=== PATIENT | female | born 1945 | race Caucasian/White ===

== ENCOUNTER 2016-07-02 20:30 | Observation (INO) ==
[2016-07-02 21:07] LABS: Basophils # 0.1 K/mcL (0.0-0.2); Basophils % 0.5 %; Eosinophils % 0.3 %; Hematocrit 43.2 % (35.3-44.9); Hemoglobin 14.1 g/dL (11.5-15.4); Immature Granulocytes % 0.3 % (0-4); Lymphocytes % 40.5 %; Mean Corpuscular HGB Conc 32.6 g/dL (31.6-35.5); Mean Corpuscular Hemoglobin 29.5 pg (28.0-33.3); Mean Corpuscular Volume 90.4 fL (83.0-100.0); Mean Platelet Volume 9.9 fL (9.4-12.4); Monocytes # 0.6 K/mcL (0.0-1.3); Monocytes % 5.8 %; Neutrophils # 5.2 K/mcL (1.6-8.9); Platelet Count 221 K/mcL (140-400); Red Blood Count 4.78 M/mcL (3.82-4.97); Red Cell Distribution Width 12.5 % (11.5-14.5); Segmented Neutrophils % 52.6 %
--- NOTE | 2016-07-02 21:12 | Emergency Department Note ---
Disposition Clinical Impression: Chest pain Qualifiers: Chest pain type: unspecified Qualified Code(s): R07.9 - Chest pain, unspecified Disposition: Admitted As Inpatient Condition: Undetermined Time of Disposition: 22:03 Chest Pain HPI - General Chief Complaint: ED Chest Pain Stated Complaint: Chest pain radiating into L arm Time Seen by Provider: 07/02/16 20:45 Source: patient Mode of arrival: ambulatory Limitations: no limitations Vital Signs Reviewed: Yes Nursing Notes Reviewed: Yes - History of Present Illness HPI Narrative: 71-year-old female with history of hypertension, hyperlipidemia, CAD arrives to emergency emergency department complaining of left-sided chest pain with radiation into her back that began roughly 5 PM this evening. The patient does have associated difficulty breathing with this. The patient states every few minutes yesterday to deep breath due to her sensation. The patient denies any history of PE or DVT, recent surgeries, unilateral leg swelling. The patient denies any fevers, chills, cough. Patient denies any other complaints at this time. Pt complaint: chest pain Onset (ago): hour(s) (4) Time: 17:00 Duration: constant Pain Location: left chest Severity: moderate Severity scale (1-10): 9 Quality: tightness Pain Radiation: back Improves with: nothing Worsens with: nothing Associated symptoms: Reports: dyspnea Treatments prior to arrival chest pain: none - Related Data On Oral Contraceptives: No Allergies Allergy/AdvReac Type Severity Reaction Status Date / Time cephalexin [From Keflex] Allergy Rash Verified 07/02/16 20:32 metformin Allergy See Verified 07/02/16 20:32 Comments nitrofurantoin Allergy Chills Verified 07/02/16 20:32 [From Macrobid] sitagliptin [From Janumet] Allergy See Verified 07/02/16 20:32 Comments Sulfa (Sulfonamide Allergy Rash Verified 07/02/16 20:32 Antibiotics) sulfamethoxazole Allergy Rash Verified 07/02/16 20:32 [From Septra] trimethoprim [From Novra] Allergy Rash Verified 07/02/16 20:32 Review of Systems: Review of Systems Constitutional: Denies fevers, chills, night sweats HEENT: Denies headache, blurry vision, eye pain, tinnitus, vertigo, sore throat , neck or thyroid masses Respiratory: Denies cough, sputum change, hemoptysis, admits to dyspnea Cardiac: Admits to chest pain, pressure, denies palpitations, dyspnea on exertion, admits to pedal edema Gastrointestinal: Denies abdominal pain, changes in bowel habits, vomiting, nausea, hematemesis, hematochezia Genitourinary: Denies dysuria, hematuria, nocturia, change in frequency, urgency, incontinence Neurologic: Denies headaches, dizziness, syncope, focalized weakness, paraesthesias, weakness Musculoskeletal: Denies back pain, joint pain, myalgias All systems ED: reviewed and negative except as stated. 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 Abdomen: Normal inspection, Normal bowel sounds 4 quadrants, nontender to palpation : Patient deferred Extremities: Normal inspection, full range of motion, appropriate pulses, capillary refill under 2 seconds Neurological: Patient alert and oriented 3, cranial nerves II through XII grossly intact, GCS 15 Skin: Warm, intact, no rashes noted - General Limitations: no limitations General appearance: alert Course Vital Signs Temperature 97.8 F 07/02/16 20:32 Pulse Rate 102 07/02/16 20:32 Respiratory Rate 20 07/02/16 20:32 Blood Pressure 175/113 07/02/16 20:32 O2 Sat by Pulse Oximetry 96 07/02/16 20:32 Temperature 97.9 F 07/02/16 23:10 Pulse Rate 90 07/02/16 23:10 Respiratory Rate 16 07/02/16 23:10 Blood Pressure 160/83 07/02/16 23:10 O2 Sat by Pulse Oximetry 97 07/02/16 22:01 Oxygen Delivery Oxygen Delivery Room Air Chest Pain - MDM Narrative Medical decision making narrative: Patient has a heart score of 6. Given the patient's cardiac history and left- sided chest pain with associated dyspnea, we will admit the patient to the hospital for further workup. The patient states it has been at least 2 years since she has had any echocardiogram or workup in the hospital. Patient agrees to plan. Patient accepted by Dr. Junior. - Medical Records Medical records reviewed: Yes I reviewed the patient's medical records. - Lab Data Lab results reviewed: Yes I reviewed the patient's lab results. Result diagrams: 07/02/16 20:50 07/02/16 20:50 Lab Results 07/02/16 07/02/16 07/02/16 Range/Units 20:50 20:50 20:50 WBC 9.9 (4.3-11.1) K/mcL RBC 4.78 (3.82-4.97) M/mcL Hgb 14.1 (11.5-15.4) g/dL Hct 43.2 (35.3-44.9) % MCV 90.4 (83.0-100.0) fL MCH 29.5 (28.0-33.3) pg MCHC 32.6 (31.6-35.5) g/dL RDW 12.5 (11.5-14.5) % Plt Count 221 (140-400) K/mcL MPV 9.9 (9.4-12.4) fL Immature Gran % 0.3 (0-4) % Seg Neutrophils % 52.6 % Lymphocytes % 40.5 % Monocytes % 5.8 % Eosinophils % 0.3 % Basophils % 0.5 % Neutrophils # 5.2 (1.6-8.9) K/mcL Lymphocytes # 4.0 (0.6-4.6) K/mcL Monocytes # 0.6 (0.0-1.3) K/mcL Eosinophils # 0.0 (0.0-0.6) K/mcL Basophils # 0.1 (0.0-0.2) K/mcL Sodium 139 (136-145) mEq/L Potassium 3.8 (3.5-4.5) mEq/L Chloride 103 (98-109) mEq/L Carbon Dioxide 25 (19-29) mEq/L BUN 16 (7-20) mg/dL Creatinine 1.01 (0.57-1.11) mg/dL Est GFR ( Amer) > 60 (> 60) Est GFR (Non-Af Amer) 54 L (> 60) BUN/Creatinine Ratio 16 (6-26) Glucose 129 H (70-99) mg/dL Calculated Osmolality 291 (280-300) Calcium 10.5 (8.6-10.8) mg/dL Total Bilirubin 0.5 (0.2-1.2) mg/dL AST 17 (5-34) Units/L ALT 16 (0-55) Units/L Alkaline Phosphatase 121 (38-126) Units/L Troponin I 0.00 (0-0.03) ng/mL Serum Total Protein 7.8 (6.0-8.3) g/dL Albumin 4.0 (3.5-5.0) g/dL Globulin 3.8 H (2.4-3.5) g/dL Albumin/Globulin Ratio 1.1 (1.1-2.2) - Radiology Data Radiology results reviewed: Yes I reviewed the patient's radiology results. - EKG Data EKG attestation: Yes I reviewed and interpreted this EKG. EKG results narrative: Heart rate 98 bpm. MN interval 180 ms. QTC 395 ms. Normal sinus rhythm. No ST elevation. EKG with mild nonspecific ST changes from EKG from 04/03/2015. Heart Score - Score History: Moderately Suspicious EKG: Non Specific repolarisation Disturbance Age: Greater than 65 Risk Factors: Equal/Greater than 3 risk factor or history of atherosclerotic disease Troponin: Less than normal limit HEART Score Total: 6 Attestation Statement - Attestation Attestation: Dr. Fraser note: Pt was seen in conjunction with resident Dr. Kinney, please see his charting for complete documentation. Assessment [id number] time with the patient and agree with the patient's treatment and disposition; left-sided chest pain for less than 4 hours. History of prior heart disease. EKG and cardiac enzymes are unremarkable at this time. She will be admitted for observation and testing ; pain free at time of admission
[2016-07-02 21:20] LABS: Alanine Aminotransferase 16 Units/L (0-55); Albumin/Globulin Ratio 1.1 (1.1-2.2); Alkaline Phosphatase 121 Units/L (38-126); Aspartate Amino Transferase 17 Units/L (5-34); BUN/Creatinine Ratio 16 (6-26); Bilirubin,Total 0.5 mg/dL (0.2-1.2); Blood Urea Nitrogen 16 mg/dL (7-20); Calcium 10.5 mg/dL (8.6-10.8); Carbon Dioxide 25 mEq/L (19-29); Chloride 103 mEq/L (98-109); Globulin 3.8 g/dL (2.4-3.5); Glucose 129 mg/dL (70-99); Osmolality,Calculated 291 (280-300); Potassium 3.8 mEq/L (3.5-4.5); Sodium 139 mEq/L (136-145); Total Protein 7.8 g/dL (6.0-8.3); eGFR For African Americans > 60 (> 60); eGFR For Non-African Americans 54 (> 60)
[2016-07-02] MEDS ORDERED: Aspirin 325 MG TABLET PO ONE (22:42)
[2016-07-03] MEDS ORDERED: D5% in Water 1,000 ML IVC PRN (03:11)
[2016-07-03] MEDS ORDERED: Acetaminophen 325 MG TABLET PO PRN (03:11)
[2016-07-03] MEDS ORDERED: *HR* Dextrose 50 % in Water (Syg) 50 ML SYRINGE IVP PRN (03:11)
[2016-07-03] MEDS ORDERED: Ondansetron ODT 4 MG TAB.RAPDIS SL PRN (03:11)
[2016-07-03] MEDS ORDERED: Dextrose Gel 15 GM PO PRN ×2 (03:11)
[2016-07-03] MEDS: ALPRAZolam 0.5 MG TABLET PO SCH ×2 (03:16→21:03)
[2016-07-03 03:38] LABS: Hematocrit 38.9 % (35.3-44.9); Hemoglobin 12.8 g/dL (11.5-15.4); Mean Corpuscular HGB Conc 32.9 g/dL (31.6-35.5); Mean Corpuscular Hemoglobin 29.5 pg (28.0-33.3); Mean Corpuscular Volume 89.6 fL (83.0-100.0); Platelet Count 206 K/mcL (140-400); Red Blood Count 4.34 M/mcL (3.82-4.97); Red Cell Distribution Width 12.5 % (11.5-14.5)
[2016-07-03 03:48] LABS: Hemoglobin A1C 7.2 %
[2016-07-03 03:49] LABS: BUN/Creatinine Ratio 17 (6-26); Blood Urea Nitrogen 15 mg/dL (7-20); Calcium 9.5 mg/dL (8.6-10.8); Carbon Dioxide 24 mEq/L (19-29); Chloride 104 mEq/L (98-109); Cholesterol 153 mg/dL (< 200); Glucose 139 mg/dL (70-99); HDL Cholesterol 51 mg/dL (40-59); LDL Cholesterol,Calculated 76 mg/dL (0-99); Magnesium 1.9 mg/dL (1.6-2.6); Osmolality,Calculated 291 (280-300); Phosphorous 3.6 mg/dL (2.3-4.7); Potassium 3.7 mEq/L (3.5-4.5); Sodium 139 mEq/L (136-145); Triglycerides 130 mg/dL (< 150); eGFR For African Americans > 60 (> 60); eGFR For Non-African Americans > 60 (> 60)
--- NOTE | 2016-07-03 04:07 | Internal Med History&Physical ---
<nIezLore Ann - Last Filed: 07/03/16 05:26> Date of Encounter: 07/03/16 Time of Encounter: 03:43 Assessment and Plan (1) Atypical chest pain Current visit: Yes Status: Acute possible etiology cardiac vs musculoskeletal vs gerd vs anxiety attack currently resolved EKG NSR trop 0.00>0,00 will trend trop continue statin, asa control BP, anxiety monitor for return of symptoms HEART score 6 in ER CATHLEEN score 3 supportive care (2) Back pain Current visit: Yes Status: Acute pt takes antiinflammatories at home continue home therapy Qualifiers: Back pain location: thoracic back pain Back pain laterality: bilateral (3) Musculoskeletal back pain Current visit: Yes Status: Acute (4) Musculoskeletal arm pain Current visit: Yes Status: Acute Qualifiers: Laterality: left Qualified Code(s): M79.602 - Pain in left arm (5) CKD (chronic kidney disease) Current visit: Yes Status: Acute (6) Diabetes Current visit: Yes Status: Acute glucose monitoring sliding scale diabetic diet Qualifiers: Diabetes mellitus type: other specified (including SURINDER) Diabetes mellitus complication status: without complication 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 Qualified Code(s): E13.9 - Other specified diabetes mellitus without complications (7) Anxiety Current visit: Yes Status: Acute continue home meds (8) HTN (hypertension) Current visit: Yes Status: Acute 119/72 controlled continue to monitor Qualifiers: Hypertension type: essential hypertension Qualified Code(s): I10 - Essential (primary) hypertension (9) HLD (hyperlipidemia) Current visit: Yes Status: Acute on statin Qualifiers: Hyperlipidemia type: unspecified Qualified Code(s): E78.5 - Hyperlipidemia , unspecified Internal Medicine - H&P: HPI Chief complaint: back pain Admitted From: Home Plans for Post Hospital Care: Home History of present illness: Ms. Pyle is a 71 year old female with left sided back pain. PMHx CAD,DM, HTN, HLD with c/o Left sided paraspinal back pain that wraps under her scapula and side and radiates around to left side of her chest. She states that it occurred soon after she finished raking and doing yard work around 5pm on 07/02. She describes it as sharp stabbing and a deep "pressure-like" pain. Pt states that pain is relieved when she does not move left shoulder or arm and is made worse with movement. She states no change with taking aspirin, and did not try nitroglycerin for relief. SHe states she has had pain like this before but was on the right side. Pt states she does have some dyspnea caused by physical exertion that has been unchanged in nature for the past 40 years. Pt denies headache, diaphoresis, change in vision, current CP, SOB, cough, numbness/ tingling. Past Med Surg Social Fam HX - Past Medical History Medical history: coronary artery disease, diabetes, GERD, hyperlipidemia, hypertension, renal disease Psychiatric history: anxiety - Past Surgical History Surgical History: cholecystectomy - Social History Smoking Status: Never smoker Smokeless Tobacco Status: No Alcohol use: none Drug use: none Occupational status: retired Current living situation: Home Activity Level: Independent ambulation - Family History Father Hx Family Endocrine Disorder: Yes (DM) Internal Medicine - H&P: Meds Alprazolam [Xanax 0.25 MG Tablet] 0.25 mg PO [facility] 07/02/16 [History] Alprazolam [Xanax 0.5 MG Tablet] 0.5 mg PO 07/02/16 [History] Aspirin Enteric Coated [Aspirin EC] 81 mg PO 07/02/16 [History] Atorvastatin Calcium [Lipitor] 20 mg PO 07/02/16 [History] Cyanocobalamin (Vitamin B-12) [Vitamin B-12] 500 mcg PO DAILY 07/02/16 [History] DiphenhydraMINE [Benadryl] 25 mg PO 07/02/16 [History] GlipiZIDE [Glucotrol] 5 mg PO BID 07/02/16 [History] SitaGLIPtin [Januvia] 100 mg PO [facility] 07/02/16 [History] Allergies cephalexin [From Keflex] Allergy (Verified 07/02/16 20:32) Rash metformin Allergy (Verified 07/02/16 20:32) See Comments nitrofurantoin [From Macrobid] Allergy (Verified 07/02/16 20:32) Chills sitagliptin [From Janumet] Allergy (Verified 07/02/16 20:32) See Comments Sulfa (Sulfonamide Antibiotics) Allergy (Verified 07/02/16 20:32) Rash sulfamethoxazole [From Septra] Allergy (Verified 07/02/16 20:32) Rash trimethoprim [From Septra] Allergy (Verified 07/02/16 20:32) Rash All Systems PM: A 10-system review of systems was performed and is negative for pertinent findings except as documented above in the HPI. - Constitutional Constitutional: no chills, no fever(s), no night sweats - EENT Eyes: no change in vision, no discharge, no pain, no photophobia - Cardiovascular Cardiovascular ROS IM: no chest pain, no diaphoresis, no dyspnea, no lightheadedness, no palpitations, no syncope - Respiratory Respiratory: no cough, no dyspnea, no wheezing, no excessive phlegm production - Gastrointestinal Gastrointestinal: no abdominal pain, no diarrhea, no hematemesis, no hematochezia, no melena, no nausea, no vomiting - Genitourinary Genitourinary: no change in urinary stream, no dysuria, no flank pain, no hematuria - Musculoskeletal Musculoskeletal ROS IM: back pain, no numbness, no stiffness - Integumentary Integumentary IM: no rash, no unusual bruising - Neurological Neurological ROS: no confusion, no convulsions, no focal weakness, no numbness, no tingling, no tremor(s) - Constitutional Vitals: Temp Pulse Resp BP Pulse Ox 97.9 F 90 16 160/83 97 07/02/16 23:10 07/02/16 23:10 07/02/16 23:10 07/02/16 23:10 07/02/16 22:01 General appearance: Present: A&O X 3, morbidly obese, no acute distress, answers questions appropriately - Head Head exam: Present: atraumatic, normocephalic - Eye Eye exam: Present: EOMI, PERRL, conjuntiva pink, sclera anicteric Pupils: Present: PERRL - ENT ENT exam: Present: mucous membranes dry - Neck Neck exam general surgery: Present: supple, trachea midline. Absent: lymphadenopathy - Respiratory Respiratory exam: Present: CTAB. Absent: accessory muscle use, rales, rhonchi, wheezes - Cardiovascular Cardiovascular exam: Present: RRR, +S1, +S2. Absent: diastolic murmur, gallop, rubs, systolic murmur - GI/Abdominal GI/Abdominal exam: Present: normal bowel sounds, soft, no peritoneal signs. Absent: distended, tenderness Additional comments: RUQ healed scar s/p open cholestectomy - Extremities Exam Extremities exam: Present: pedal edema (trace b/l), warm, radial pulses palpable and symetrical. Absent: calf tenderness, cyanotic - Back Exam Back exam: Present: paraspinal tenderness (B/L C7-T7 distribution L>R). Absent : CVA tenderness (L), CVA tenderness (R), vertebral tenderness - Neurological Exam Neurological exam: Present: CN II-XII intact, oriented X3, no focal deficits, strengths equal and symetr throughout. Absent: pronater drift, facial droop, speech deficit - Psychiatric Psychiatric exam: Present: anxious - Skin Skin exam: Present: dry, intact Internal Med - H&P Results - Labs CBC & Chem 7: 07/03/16 03:10 07/03/16 03:10 Labs: Short CBC 07/03/16 Range/Units 03:10 WBC 9.6 (4.3-11.1) K/mcL Hgb 12.8 (11.5-15.4) g/dL Hct 38.9 (35.3-44.9) % Plt Count 206 (140-400) K/mcL <Olman Wilburn R - Last Filed: 07/03/16 11:02> Date of Encounter: 07/03/16 Internal Medicine - H&P: HPI History of present illness: Ms. Pyle is a 71 year old female All Systems PM: A 10-system review of systems was performed and is negative for pertinent findings except as documented above in the HPI. - Constitutional Vitals: Temp Pulse Resp BP Pulse Ox 97.7 F 73 16 158/87 94 07/03/16 06:56 07/03/16 06:56 07/03/16 06:56 07/03/16 06:56 07/03/16 06:56 Internal Med - H&P Results - Labs CBC & Chem 7: 07/03/16 03:10 07/03/16 03:10 Labs: Short CBC 07/03/16 Range/Units 03:10 WBC 9.6 (4.3-11.1) K/mcL Hgb 12.8 (11.5-15.4) g/dL Hct 38.9 (35.3-44.9) % Plt Count 206 (140-400) K/mcL BMP 07/03/16 03:10 Sodium 139 Potassium 3.7 Chloride 104 Carbon Dioxide 24 BUN 15 Creatinine 0.88 Glucose 139 H Calcium 9.5 Cardiac Enzymes 07/03/16 07/03/16 Range/Units 03:10 08:41 Troponin I 0.00 0.00 (0-0.03) ng/mL - Attending Attestation I performed a history and physical examination of the patient and discussed management with the resident. I reviewed the residents note and agree with the documented findings and plan of care, with additions as below. 71 year old female with PMHx of CAD,DM, HTN, HLD with c/o Left sided chest pain with some numbness of the left upper extremity, started yesterday. O/E: Cardia: regular rate; rhythm. Lungs: CTA. EKG: SR; Q wave in III, AVF. T wave inversion in III, AVF. St depression in II, V3-V6. CXR reported no acute process. A/P: chest pain: telemetry; trend troponins; Stress test.
[2016-07-03] MEDS ORDERED: Insulin LISPRO 300 UNITS/3 ML VIAL SQ SCH ×2 (06:00→21:00)
[2016-07-03] MEDS: *HR* Heparin 5,000 UNIT/ML VIAL SQ SCH ×2 (06:08→17:25)
[2016-07-03] MEDS: Pantoprazole 40 MG VIAL IVP SCH (06:09)
[2016-07-03] MEDS: Insulin LISPRO 300 UNITS/3 ML VIAL SQ SCH ×3 (08:32→17:24)
[2016-07-03] MEDS ORDERED: Regadenoson 0.4 MG/5 ML SYRINGE IVP ONE (08:52)
--- NOTE | 2016-07-03 13:33 | Electrocardiograph Report ---
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
--- NOTE | 2016-07-03 19:58 | Internal Med Progress Note ---
Date of Encounter: 07/03/16 Time of Encounter: 14:30 - Assessment and plan (1) Atypical chest pain Current Visit: Yes Status: Acute Assessment and plan: The pain started immediately after the patient had raked leaves in her yard. She is upset when the possibility of musculoskeletal etiology as brought forth. She states that she rakes leaves like this all with time and that this could not possibly be her muscles. She also endorses pain to her left arm. Pain is reproduced with palpation highly consistent with musculoskeletal etiology however given her risk factors, will await the second part of her 2 heart stress test. Chest x-ray negative. Regarding her hypertension, patient stating that she has been tried on "all of the meds" and states that her blood pressure simply goes too low on every single medication. Will not start any antihypertensive medication during this visit and have her follow up outpatient. (2) Musculoskeletal arm pain Current Visit: Yes Status: Suspected Qualifiers: Laterality: left Qualified Code(s): M79.602 - Pain in left arm (3) Diabetes Current Visit: Yes Status: Chronic Assessment and plan: Controlled with an A1c of 7.2%. She is on Januvia and glipizide. Sliding scale while admitted. (4) HTN (hypertension) Current Visit: Yes Status: Chronic Assessment and plan: Borderline hypertensive at times however the patient does not appear to be on any antihypertensive medications at home, see prior note for atypical chest pain Qualifiers: Hypertension type: essential hypertension Qualified Code(s): I10 - Essential (primary) hypertension (5) HLD (hyperlipidemia) Current Visit: Yes Status: Chronic Assessment and plan: Lipid panel unremarkable, recommend continue statin and low cholesterol diet Qualifiers: Hyperlipidemia type: unspecified Qualified Code(s): E78.5 - Hyperlipidemia , unspecified (6) YENIFER (acute kidney injury) Current Visit: Yes Status: Resolved Assessment and plan: No evidence to support chronic kidney disease, mild acute kidney injury noted upon arrival as resolved. (7) Morbid obesity with BMI of 40.0-44.9, adult Current Visit: Yes Status: Chronic - Subjective Interval history: Patient seen and examined. On examination, patient is sitting upright in bed. Patient stating she continues to have intermittent bouts of chest pain. She states that her pain is not due to her raking stating this is very minimal and she does at all time. She is concerned that her blood pressure was a little bit too low. - Constitutional Vitals: Temp Pulse Resp BP Pulse Ox 98.0 F 84 16 141/75 97 07/03/16 18:45 07/03/16 18:45 07/03/16 18:45 07/03/16 18:45 07/03/16 18:45 General appearance: Present: A&O X 3, morbidly obese, pleasant, no acute distress, answers questions appropriately - Head Head exam: Present: atraumatic, normocephalic - Eye Eye exam: Present: PERRL, conjuntiva pink, sclera anicteric Pupils: Present: PERRL - Neck Neck exam general surgery: Present: supple, trachea midline. Absent: lymphadenopathy - Respiratory Respiratory exam: Present: chest wall tenderness, CTAB. Absent: accessory muscle use, rales, respiratory distress, rhonchi, wheezes - Cardiovascular Cardiovascular exam: Present: RRR, +S1, +S2. Absent: diastolic murmur, gallop, rubs, systolic murmur - GI/Abdominal GI/Abdominal exam: Present: normal bowel sounds, soft, no peritoneal signs. Absent: distended, tenderness - Extremities Exam Extremities exam: Present: warm, radial pulses palpable and symetrical. Absent : calf tenderness, cyanotic, pedal edema - Neurological Exam Neurological exam: Present: alert, CN II-XII intact, oriented X3, no focal deficits, strengths equal and symetr throughout. Absent: pronater drift, facial droop, speech deficit - Skin Skin exam: Present: dry, intact, normal color, warm Internal Medicine: Result - Labs CBC & Chem 7: 07/03/16 03:10 07/03/16 03:10 Labs: Short CBC 07/03/16 Range/Units 03:10 WBC 9.6 (4.3-11.1) K/mcL Hgb 12.8 (11.5-15.4) g/dL Hct 38.9 (35.3-44.9) % Plt Count 206 (140-400) K/mcL BMP 07/03/16 03:10 Sodium 139 Potassium 3.7 Chloride 104 Carbon Dioxide 24 BUN 15 Creatinine 0.88 Glucose 139 H Calcium 9.5 Cardiac Enzymes 07/03/16 07/03/16 Range/Units 03:10 08:41 Troponin I 0.00 0.00 (0-0.03) ng/mL Consult Discharge Plan - Plan Referrals: Mike Carranza MD [Primary Care Provider] -
[2016-07-03] MEDS ORDERED: Aspirin Enteric Coated 81 MG Tablet PO SCH (21:00)
[2016-07-04] MEDS: Pantoprazole 40 MG VIAL IVP SCH (06:05)
[2016-07-04] MEDS: *HR* Heparin 5,000 UNIT/ML VIAL SQ SCH (06:06)
[2016-07-04] MEDS: Insulin LISPRO 300 UNITS/3 ML VIAL SQ SCH ×2 (08:31→12:47)
--- NOTE | 2016-07-04 09:08 | Nuclear Medicine Stress Report ---
Regadenoson Nuclear 2 day Name: Tessa Pyle Date of Study: 07/03/2016 Date: 1945 Ht: 66.0 in Medical Record#: [id number] Age: 71 Wt: 276.0 lb Gender: Female Order #: [id number] Location: [facility] Room: [facility] Supervising Provider: Edmond Vallejo CNP Reading Physician: Barbara Bustillo DO Ordering Physician: Rubina Avendano CNP Primary Care Physician: Mike Carranza MD Stress Technologist: Angely Edward, LEATHER CARVER,CPFT Eviscerator: Edwin Garza Indications: Atypical chest pain Impression: Technically challenging 2-day study. There is decreased radiotracer uptake of mild intensity during stress involving the anterior wall and apex. This may be secondary to breast attenuation artifact. However moderate reversible ischemia in this area cannot be ruled out. No appreciable change in pharmacologic stress ECG from baseline. Normal gated EF. Recommend clinical correlation. History: Diabetes Hypercholesteremia Stress Test Summary: Stress Test Type: Pharmacologic Regadenoson 0.4mg/5ml given IV Baseline Information: Initial Heart Rate: 74 Blood Pressure: 138/82 Stress Information: Stress Time: 4 min 05 sec Test Terminated Due to (primary): As per protocol METS Reached: 1 Nuclear Summary: SPECT myocardial perfusion imaging using Tc99m Sestamibi given intravenously was performed at rest and following cardiac stress testing. The resting images were obtained following initial dose of 32.0 mCi. Following stress an additional dose of 32.8 mCi was given at peak exercise or 30 seconds post regadenoson infusion. Medication Given: Time Medication Dose Units Route Findings: Stress Note * Resting ECG demonstrated normal sinus rhythm with nonspecific ST abnormalities. * No appreciable change in pharmacologic ECG when compared to rest. * Patient had no chest pain during stress. * No arrhythmias were noted during stress. Hemodynamic responses * Normal hemodynamic responses to pharmacologic stress. Study Quality * Study quality was fair. This was a 2-day study. Gated EF > 70% * Gated EF > 70%. Left Ventricle * The left ventricle is not dilated. TID * No evidence of transient ischemic dilatation. Lung Uptake * There is no evidence of increase lung uptake. NORMALS * Normal wall motion. PERFUSION * Normal resting perfusion. * There is decreased radiotracer uptake of mild intensity in the entire anterior wall and apex during stress. Cine images demonstrate possibility of breast shadow. SDS 6 * Other views on stress images demonstrate normal perfusion. Updated by Barbara Bustillo on 07/04/2016 8:53:14 AM electronically signed on 07/04/2016 9:02:31 AM with status of Final
--- NOTE | 2016-07-04 10:54 | Cardiology Consult Note ---
Date of Encounter: 07/04/16 Time of Encounter: 10:47 Assessment and Plan (1) Abnormal stress test Current Visit: Yes Status: Acute 2 day stress test technically challenging study. There was decreased uptake of mild intensity during stress involving anterior wall and apex. May be secondary to breast attenuation artifact, but moderate reversible ischemia cannot be ruled out. Normal gated EF. Echo 03/2014 EF 65%, mild diastolic dysfunction, no significant valvular dysfunction. Pt's chest pain is atypical--occurred at rest, worsened when moving her left arm /shoulder, no worsening with exertion. Since resolved. She does have risk factors for CAD including HTN, HLD, DM, obesity. Given her atypical symptoms, recommend medical management for now. She is on ASA and Statin. Discussed adding BB, but pt is hesitant reporting her BP cannot tolerate any antihypertensives and drops her BP too much. Recommend outpt follow-up in 2-3 weeks for re-evaluation of symptoms. Anticipate sign off once seen and evaluated by Dr. Osorio. (2) Chest pain Current Visit: Yes Status: Acute Details as above. Troponins negative, no acute EKG changes. Atypical in nature. BP 175/113 on presentation, which could have contributed as well. Stress test abnormality breast attenuation artifact vs. moderate ischemia. Given atypical symptoms, recommend medical management and close outpt follow-up with cardiology. Qualifiers: Chest pain type: unspecified Qualified Code(s): R07.9 - Chest pain, unspecified (3) HTN (hypertension) Current Visit: Yes Status: Chronic BP was 175/113 on admission. Since better controlled. Pt hesitant to start antihypertensives, stating she has tried them all and even low doses drop her BP too much. Qualifiers: Hypertension type: essential hypertension Qualified Code(s): I10 - Essential (primary) hypertension Discussion w patient/family: The assessment and plan as outlined above was discussed with the patient and/or family members who expressed understanding and agreement. All questions were answered. Thank you for involving us in the care of your patient. Please call with any questions. I will discuss all the above with Dr. Osorio and make changes as necessary. History of Present Illness Consult date: 07/04/16 Requesting physician: Rubina Avendano Consult reason: abnormal stress Chief complaint: chest pain History of present illness: Ms. Pyle is a 71 year old female with PMH of DM, HTN, HLD that presented to ED with chief complaint of left sided chest pain. She states that it occurred soon after she finished raking and doing yard work around 5pm on 07/02. She describes it as sharp stabbing and a deep "pressure-like" pain. Pt states that pain is relieved when she does not move left shoulder or arm and was made worse with movement of her left arm. There was no change with taking aspirin. She reports the pain did not worsen with exertion. She sometimes experiences "lung pain" when lying in her recliner or in bed located on her back and that pain only occurs at rest, not with exertion. Chronic exertional dyspnea unchanged from her baseline. No known hx of CAD. 2 day stress test was obtained. It was a technically challenging study. There was decreased uptake of mild intensity during stress involving anterior wall and apex. May be secondary to breast attenuation artifact, but moderate reversible ischemia cannot be ruled out. Echo 03/2014 EF 65%, mild diastolic dysfunction, no significant valvular dysfunction. Pt denies any recurrent chest pain since yesterday morning when she experienced a brief tingling sensation. Past Med Surg Social Fam HX - Past Medical History Medical history: diabetes, GERD, hyperlipidemia, hypertension, renal disease Psychiatric history: anxiety - Past Surgical History Surgical History: cholecystectomy - Social History Smoking Status: Never smoker Smokeless Tobacco Status: No Alcohol use: none Drug use: none - Family History Father Hx Family Endocrine Disorder: Yes (DM) Medications and Allergies Alprazolam [Xanax 0.25 MG Tablet] 0.25 mg PO QAM 07/02/16 [History] Alprazolam [Xanax 0.5 MG Tablet] 0.5 mg PO HS 07/02/16 [History] Aspirin Enteric Coated [Aspirin EC] 81 mg PO HS 07/02/16 [History] Atorvastatin Calcium [Lipitor] 20 mg PO HS 07/02/16 [History] Cyanocobalamin (Vitamin B-12) [Vitamin B-12] 500 mcg PO DAILY 07/02/16 [History] DiphenhydraMINE [Benadryl] 25 mg PO HS 07/02/16 [History] GlipiZIDE [Glucotrol] 5 mg PO BID 07/02/16 [History] SitaGLIPtin [Januvia] 100 mg PO QAM 07/02/16 [History] Allergies cephalexin [From Keflex] Allergy (Verified 07/02/16 20:32) Rash metformin Allergy (Verified 07/02/16 20:32) See Comments nitrofurantoin [From Macrobid] Allergy (Verified 07/02/16 20:32) Chills sitagliptin [From Janumet] Allergy (Verified 07/02/16 20:32) See Comments Sulfa (Sulfonamide Antibiotics) Allergy (Verified 07/02/16 20:32) Rash sulfamethoxazole [From Septra] Allergy (Verified 07/02/16 20:32) Rash trimethoprim [From Septra] Allergy (Verified 07/02/16 20:32) Rash All Systems Review: A 10-system review of systems was performed and is negative for pertinent findings except as documented above in the HPI. - Cardiovascular Cardiovascular: as per HPI, chest pain at rest, dyspnea on exertion, radiating jaw, neck or arm pain - Respiratory Respiratory: dyspnea Physical Examination Vital Signs, Last 4 Hours Temp Pulse Resp BP Pulse Ox 07/04/16 10:46 97.4 F L 07/04/16 10:45 76 16 144/81 95 07/04/16 08:04 97.7 F 79 16 142/81 95 General: Conversant, No Apparent Distress HEENT: Atraumatic, Normocephaly, Mucus Membranes Moist Neck: No JVD, Normal carotid pulses Cardiac: Reg Rate and Rhythm, Normal S1 and S2, No Murmur Lungs: Normal Breath Sounds, No Wheeze, Rales, Rhonchi Neuro: Alert and responsive, No focal deficits noted Abdomen: Soft, Non-Tender Skin: No rashes noted on visualized skin Musculoskeletal: No Chest Wall Tenderness Extremities: No Clubbing, No Cyanosis, No Edema, Normal Pulses Results 07/03/16 03:10 07/03/16 03:10 Active Medications Acetaminophen (Tylenol) 650 mg PO Q6HR PRN PRN Reason: Mild Pain (1-3) Stop: 01/02/17 03:12 Alprazolam (Xanax) 0.5 mg PO HS [facility] PRN Reason: Protocol Stop: 01/02/17 03:01 Last Admin: 07/03/16 21:03 Dose: 0.5 mg Aspirin (Aspirin Ec) 81 mg PO HS [facility] Stop: 01/02/17 21:01 Last Admin: 07/03/16 21:03 Dose: 81 mg Atorvastatin Calcium (Lipitor) 20 mg PO HS [facility] Stop: 01/02/17 03:01 Last Admin: 07/03/16 21:04 Dose: 20 mg Atorvastatin Calcium (Lipitor) 20 mg PO HS [facility] Stop: 01/02/17 21:01 Last Admin: 07/03/16 21:04 Dose: Not Given Dextrose/Water (Dextrose 50% (Syg)) 25 ml IVP AD PRN PRN Reason: Hypoglycemia Stop: 01/02/17 03:12 Diphenhydramine HCl (Benadryl) 25 mg PO HS [facility] Stop: 01/02/17 03:01 Last Admin: 07/03/16 21:04 Dose: 25 mg Docusate Sodium (Colace) 100 mg PO BID PRN PRN Reason: Constipation Stop: 01/02/17 03:12 Glucagon (Glucagen) 1 mg IM ONCE PRN PRN Reason: Hypoglycemia Stop: 01/02/17 03:12 Glucose (Gluctose) 15 gm PO ONCE PRN PRN Reason: Hypoglycemia Stop: 01/02/17 03:12 Glucose (Gluctose) 30 gm PO ONCE PRN PRN Reason: Hypoglycemia Stop: 01/02/17 03:12 Heparin Sodium (Porcine) (Heparin) 5,000 unit SQ Q12HCO [facility] Stop: 01/02/17 06:01 Last Admin: 07/04/16 06:06 Dose: 5,000 unit Dextrose (Dextrose 5%) 1,000 mls @ 100 mls/hr IVC .Q10H PRN PRN Reason: HYPOGLYCEMIA Stop: 01/02/17 03:12 Insulin Human Lispro (Humalog) 0 units SQ TIDAC [facility] PRN Reason: Protocol Stop: 01/02/17 07:31 Last Admin: 07/04/16 08:31 Dose: 4 units Insulin Human Lispro (Humalog) 0 units SQ HS [facility] PRN Reason: Protocol Stop: 01/02/17 21:01 Last Admin: 07/03/16 21:09 Dose: Not Given Ondansetron HCl (Zofran Odt) 4 mg SL Q8HR PRN PRN Reason: Nausea And Vomiting Stop: 01/02/17 03:12 Pantoprazole Sodium (Protonix) 40 mg IVP 0630 [facility] Stop: 01/02/17 06:31 Last Admin: 07/04/16 06:05 Dose: 40 mg - Imaging and Cardiology Stress Test: report reviewed Echo: report reviewed - EKG Interpretation EKG results cardiology: personally reviewed (SR, no significant changes from prior.), other (24 hour tele AVG HR 82, no significant pauses or arrhythmias.) Consult Discharge Plan - Plan Referrals: Dillon,Mike Stoner MD [Primary Care Provider] -
[2016-07-04] MEDS ORDERED: Metoprolol XL (24 HR) Succ 25 MG TAB.ER.24H PO SCH (13:15)
[2016-07-04] MEDS ORDERED: Nitroglycerin 0.4 MG TAB.SUBL SL PRN (13:15)
[2016-07-04 14:49] VITALS: BP 138/76
--- NOTE | 2016-07-04 15:52 | Discharge Summary ---
Date of Encounter: 07/04/16 Time of Encounter: 14:30 - Discharge Diagnosis (1) Atypical chest pain Priority: Primary Status: Acute Comments: Chest x-ray negative. Troponins negative. Stress test abnormal and cardiology was brought on board. Cardiology offered her heart catheter versus medical management in the decision was made to proceed with medical management. Started on Toprol and given nitroglycerin as needed. She will follow up outpatient with cardiology in 1 week. She denied chest pain on day of discharge. (2) Abnormal stress test Priority: Primary Status: Acute (3) Musculoskeletal arm pain Priority: Primary Status: Suspected Qualifiers: Laterality: left Qualified Code(s): M79.602 - Pain in left arm (4) Diabetes Priority: Secondary Status: Chronic Comments: Controlled with an A1c of 7.2%. She is on Januvia and glipizide. Continued follow-up outpatient (5) HTN (hypertension) Priority: Secondary Status: Chronic Comments: Borderline hypertensive at times however the patient does not appear to be on any antihypertensive medications at home. Patient stating that she has been tried on "all of the meds" and states that her blood pressure simply goes too low on every single medication. She was started on Toprol per cardiology, recommend close blood pressure checks and follow-up closely outpatient Qualifiers: Hypertension type: essential hypertension Qualified Code(s): I10 - Essential (primary) hypertension (6) HLD (hyperlipidemia) Priority: Secondary Status: Chronic Comments: Lipid panel unremarkable, recommend continue statin and low cholesterol diet Qualifiers: Hyperlipidemia type: unspecified Qualified Code(s): E78.5 - Hyperlipidemia , unspecified (7) YENIFER (acute kidney injury) Priority: Primary Status: Resolved (8) Morbid obesity with BMI of 40.0-44.9, adult Priority: Secondary Status: Chronic - Discharge Medications Prescriptions: Nitroglycerin 0.4 mg SL Q5MIN PRN #25 tab.subl PRN Reason: Chest Pain Metoprolol XL (24 HR) Succ [Toprol Xl] 25 mg PO DAILY #30 tab.er.24h Home Medications: Alprazolam [Xanax 0.25 MG Tablet] 0.25 mg PO QAM 07/02/16 [History] Alprazolam [Xanax 0.5 MG Tablet] 0.5 mg PO HS 07/02/16 [History] Aspirin Enteric Coated [Aspirin EC] 81 mg PO HS 07/02/16 [History] Atorvastatin Calcium [Lipitor] 20 mg PO HS 07/02/16 [History] Cyanocobalamin (Vitamin B-12) [Vitamin B-12] 500 mcg PO DAILY 07/02/16 [History] DiphenhydraMINE [Benadryl] 25 mg PO HS 07/02/16 [History] GlipiZIDE [Glucotrol] 5 mg PO BID 07/02/16 [History] SitaGLIPtin [Januvia] 100 mg PO QAM 07/02/16 [History] Metoprolol XL (24 HR) Succ [Toprol Xl] 25 mg PO DAILY #30 tab.er.24h 07/04/16 [ Rx] Nitroglycerin 0.4 mg SL Q5MIN PRN #25 tab.subl 07/04/16 [Rx] Allergies/Adverse Reactions: Allergies cephalexin [From Keflex] Allergy (Verified 07/02/16 20:32) Rash metformin Allergy (Verified 07/02/16 20:32) See Comments nitrofurantoin [From Macrobid] Allergy (Verified 07/02/16 20:32) Chills sitagliptin [From Janumet] Allergy (Verified 07/02/16 20:32) See Comments Sulfa (Sulfonamide Antibiotics) Allergy (Verified 07/02/16 20:32) Rash sulfamethoxazole [From Septra] Allergy (Verified 07/02/16 20:32) Rash trimethoprim [From Septra] Allergy (Verified 07/02/16 20:32) Rash Procedures/tests Complete & Pending: Procedures Performed prior 72 hours Category Date Time Status NM kj perf SPECT multi [NM] Routine Exams 07/03/16 10:07 Taken SP pharm nuclear stress Routine Y 07/03/16 07:52 Completed Date of admission: 07/02/16 22:29 Primary care physician: Mike Carranza MD Consults: 07/03/16 03:11 Consult to Shoeshiner [CONS] Routine Comment: 07/04/16 09:39 Consult to Cardiology [CONS] Routine Comment: Consulting Provider: [facility] Reason for Consult: stress with possible mod reversible ischemia vs artifact. please eval and advise. thanks Call Completed: Yes Discharging clinician: Rubina Avendano Anticipated date of discharge: 07/04/16 - Patient Status Disposition: Home, Self-Care Condition: Good Functional capacity at discharge: independent ambulation Overall status at discharge: patient is back to baseline - Discharge Instructions Instructions: Metoprolol (By mouth), Chronic Hypertension (DC) Follow Up With: Mike Carranza MD [Primary Care Provider] - 07/17/16 9:00 am [facility] [Provider Group] Additional Instructions: Follow-up with primary care provider as scheduled, follow-up with cardiology within 1 week - Diet and Activity Activity: increase activity as tolerated Diet: diabetic diet, low fat, low cholesterol, low salt diet Hospital course: Ms. Pyle is a 71 year old female with past medical history of CAD, diabetes, GERD, hyperlipidemia, hypertension, morbid obesity. Patient presented to the emergency department chief complaint left-sided paraspinal back pain that wrapped under her scapula and radiated to the left side of her chest. Patient stating the pain occurred after she had finished raking leaves in the yard. She describes the pain as sharp, stabbing, and deep and pressure-like. Patient stating pain is relieved and she does not move her shoulder and is worsened with movement. Patient stating she has had pain like this before on the right side. Patient denied change to her chronic dyspnea on exertion. Workup in the emergency department unremarkable. Chest x-ray negative. Patient was admitted to the hospitalist service for further evaluation and management. Troponins were negative. Patient had a 2 day nuclear stress test that was abnormal so cardiology was brought on board. Cardiology offered her left heart catheter versus medical management and the decision was made to proceed with medical management. Per cardiology, patient was started on Toprol and given nitroglycerin as needed. Her acute kidney injury resolved. She was borderline hypertensive at times however she states that any antihypertensive medications and her blood pressure go too low at night so she has been instructed to avoid antihypertensive medications. She was instructed to monitor her blood pressure closely given that she has started Toprol. She was discharged home in stable condition with close outpatient follow-up with cardiology within 1 week. ITS Impressions Chest X-Ray 07/02/16 20:36 IMPRESSION: No acute process. D/ / González Gavin MD / González Gavin MD Interpreting Provider: González Gavin MD 2 day nuclear stress test impression: Technically challenging to day study. There is decreased radiotracer uptake of mild intensity during stress involving the anterior wall and apex. This may be secondary to breast attenuation artifact. However moderate reversible ischemia in this area cannot be ruled out. No appreciable change in pharmacologic stress ECG from baseline. Normal gated EF. - Time Spent with Patient Total time spent providing and/or coordinating discharge services: - Constitutional Vitals: Temp Pulse Resp BP Pulse Ox 97.6 F 81 17 138/76 94 07/04/16 14:46 07/04/16 14:46 07/04/16 14:46 07/04/16 14:46 07/04/16 14:46 General appearance: Present: A&O X 3, morbidly obese, pleasant, no acute distress, answers questions appropriately - Head Head exam: Present: atraumatic, normocephalic - Eye Eye exam: Present: PERRL, conjuntiva pink, sclera anicteric Pupils: Present: PERRL - Neck Neck exam general surgery: Present: supple, trachea midline. Absent: lymphadenopathy - Respiratory Respiratory exam: Present: CTAB. Absent: accessory muscle use, rales, respiratory distress, rhonchi, wheezes - Cardiovascular Cardiovascular exam: Present: RRR, +S1, +S2. Absent: diastolic murmur, gallop, rubs, systolic murmur - GI/Abdominal GI/Abdominal exam: Present: normal bowel sounds, soft, no peritoneal signs. Absent: distended, tenderness - Extremities Exam Extremities exam: Present: warm, radial pulses palpable and symetrical. Absent : calf tenderness, cyanotic, pedal edema - Neurological Exam Neurological exam: Present: alert, CN II-XII intact, normal gait, oriented X3, no focal deficits, strengths equal and symetr throughout. Absent: pronater drift, facial droop, speech deficit - Skin Skin exam: Present: dry, intact, normal color, warm
== END 2016-07-04 17:15 | disposition home or self-care (01) ==
LOC: 3BNU 20:30 → EMEROO 20:30 → 3BNU 22:51
PROVIDERS: ADMIT Nurse Practitioner Family; ATTEND Nurse Practitioner Family

== ENCOUNTER 2018-07-13 06:21 | Observation (INO) ==
--- NOTE | 2018-07-13 07:38 | Emergency Department Note ---
Disposition Clinical Impression: Palpitations, Chest pain, Ventricular trigeminy Disposition: Admitted As Inpatient Condition: Good Referrals: Mike Carranza MD [Primary Care Provider] - Forms: ED Satisfaction Letter Arrhythmia/Palpitations HPI - General Chief Complaint: ED Arrhythmia/Palpitations Stated Complaint: high heart rate Time Seen by Provider: 07/13/18 06:40 Source: patient Limitations: no limitations - History of Present Illness HPI Narrative: Patient is a 73-year-old female that presents the emergency department with ch ief complaint of palpitations. Patient states that over the last several weeks she has had a "acid feeling in her chest " the patient reports that this was not relieved with her typical omeprazole. The patient states that also throughout this time she has been having a feeling as though her heart has been beating irregular. The patient states she has had similar episodes in the past but is unsure what was actually going wrong with her at that time. Patient reports she has prior history of diabetes. Patient states it is not improved or worsened by anything. Pt Subjective Complaint: "skipped beats", palpitations - Related Data Home Medications Medication Instructions Recorded Confirmed ALPRAZolam [Xanax 0.25 MG Tablet] 0.25 mg PO QAM 07/02/16 08/11/17 ALPRAZolam [Xanax 0.5 MG Tablet] 0.5 mg PO HS 07/02/16 08/11/17 Aspirin Enteric Coated [Aspirin EC] 81 mg PO HS 07/02/16 08/11/17 Atorvastatin Calcium [Lipitor] 20 mg PO HS 07/02/16 08/11/17 Cyanocobalamin (Vitamin B-12) 500 mcg PO DAILY 07/02/16 08/11/17 [Vitamin B-12] DiphenhydraMINE [Benadryl] 25 mg PO HS 07/02/16 08/11/17 SitaGLIPtin [Januvia] 100 mg PO QAM 07/02/16 08/11/17 Glimepiride [Amaryl] 2 mg PO 0800 08/11/17 08/11/17 Omeprazole 20 mg PO DAILY PRN 08/11/17 08/11/17 Allergies Allergy/AdvReac Type Severity Reaction Status Date / Time cephalexin [From Keflex] Allergy Rash Verified 08/11/17 10:20 metformin Allergy See Verified 08/11/17 10:20 Comments nitrofurantoin Allergy Chills Verified 08/11/17 10:20 [From Macrobid] sitagliptin [From Janumet] Allergy See Verified 08/11/17 10:20 Comments Sulfa (Sulfonamide Allergy Rash Verified 08/11/17 10:20 Antibiotics) sulfamethoxazole Allergy Rash Verified 08/11/17 10:20 [From Septra] trimethoprim [From Novra] Allergy Rash Verified 08/11/17 10:20 All systems ED: reviewed and negative except as stated. Past Medical History - Past Medical History Attestation: Yes The following information was validated with the patient. 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 Head: Normocephalic/atraumatic Eyes:PERRLA, EOMI, no conjunctivitis Nares: Without d/c. Ears: No erythema or d/c noted. 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 Cardovascular: regular rate and rhythm without murmur, brisk capillary refill, no peripheral edema. Lungs: Clear to ascultation bilaterally, non-labored Abd: Soft nontender, Non Distended, no guarding, no rebound. : Defered Extremities: moves all extremities equally Neuro: AOx3, no obvious gross neuro deficit Psych: Normal Affect Derm: No rash noted - General Limitations: no limitations General appearance: alert, in no apparent distress Course Vital Signs Temperature 97.6 F 07/13/18 06:24 Pulse Rate 89 07/13/18 06:24 Respiratory Rate 18 07/13/18 06:24 Blood Pressure 156/104 07/13/18 06:24 O2 Sat by Pulse Oximetry 97 07/13/18 06:24 Temperature 97.6 F 07/13/18 06:24 Pulse Rate 89 07/13/18 06:24 Respiratory Rate 18 07/13/18 06:24 Blood Pressure 156/104 07/13/18 06:24 O2 Sat by Pulse Oximetry 97 07/13/18 06:24 Oxygen Delivery Oxygen Delivery Room Air Arrhythmia/Palpitations - Medical Records Medical records reviewed: Yes I reviewed the patient's medical records. - Lab Data Lab results reviewed: Yes I reviewed the patient's lab results. Result diagrams: 07/13/18 07:49 07/13/18 07:49 Lab Results 07/13/18 07/13/18 07/13/18 Range/Units 07:49 07:49 07:49 WBC 6.9 (4.3-11.1) K/mcL RBC 4.33 (3.82-4.97) M/mcL Hgb 12.9 (11.5-15.4) g/dL Hct 39.2 (35.3-44.9) % MCV 90.5 (83.0-100.0) fL MCH 29.8 (28.0-33.3) pg MCHC 32.9 (31.6-35.5) g/dL RDW 12.6 (11.5-14.5) % Plt Count 182 (140-400) K/mcL MPV 9.7 (9.4-12.4) fL Immature Gran % 0.3 (0-4) % Seg Neutrophils % 56.2 % Lymphocytes % 35.5 % Monocytes % 7.1 % Eosinophils % 0.3 % Basophils % 0.6 % Neutrophils # 3.9 (1.6-8.9) K/mcL Lymphocytes # 2.5 (0.6-4.6) K/mcL Monocytes # 0.5 (0.0-1.3) K/mcL Eosinophils # 0.0 (0.0-0.6) K/mcL Basophils # 0.0 (0.0-0.2) K/mcL PT 11.9 (9.4-12.1) Seconds INR 1.1 APTT 33.2 (26.0-36.0) Seconds Sodium 139 (136-145) mEq/L Potassium 3.6 (3.5-5.1) mEq/L Chloride 104 (98-107) mEq/L Carbon Dioxide 27 (23-29) mEq/L BUN 16 (8-23) mg/dL Creatinine 1.00 (0.60-1.20) mg/dL Est GFR ( Amer) > 60 (> 60) Est GFR (Non-Af Amer) 54 L (> 60) BUN/Creatinine Ratio 16 (6-26) Glucose 189 H (70-105) mg/dL Calculated Osmolality 294 (280-300) Calcium 9.2 (8.6-10.3) mg/dL Magnesium 2.2 (1.6-2.6) mg/dL Troponin I < 0.03 (< 0.04) ng/mL TSH 4.033 (0.340-5.600) mcIU/mL - Radiology Data Radiology results reviewed: Yes I reviewed the patient's radiology results. - EKG Data EKG shows normal: sinus rhythm Rhythm: PVC's Hollister/QRS: normal Ectopy: trigeminy
[2018-07-13 08:00] LABS: Basophils % 0.6 %; Eosinophils % 0.3 %; Hematocrit 39.2 % (35.3-44.9); Hemoglobin 12.9 g/dL (11.5-15.4); Immature Granulocytes % 0.3 % (0-4); Lymphocytes # 2.5 K/mcL (0.6-4.6); Lymphocytes % 35.5 %; Mean Corpuscular HGB Conc 32.9 g/dL (31.6-35.5); Mean Corpuscular Hemoglobin 29.8 pg (28.0-33.3); Mean Corpuscular Volume 90.5 fL (83.0-100.0); Mean Platelet Volume 9.7 fL (9.4-12.4); Monocytes # 0.5 K/mcL (0.0-1.3); Monocytes % 7.1 %; Neutrophils # 3.9 K/mcL (1.6-8.9); Platelet Count 182 K/mcL (140-400); Red Blood Count 4.33 M/mcL (3.82-4.97); Red Cell Distribution Width 12.6 % (11.5-14.5); Segmented Neutrophils % 56.2 %
[2018-07-13 08:09] LABS: INR 1.1; Prothrombin Time 11.9 Seconds (9.4-12.1)
[2018-07-13 08:12] LABS: Activated Partial Thrombo Time 33.2 Seconds (26.0-36.0)
[2018-07-13 08:25] LABS: BUN/Creatinine Ratio 16 (6-26); Blood Urea Nitrogen 16 mg/dL (8-23); Calcium 9.2 mg/dL (8.6-10.3); Carbon Dioxide 27 mEq/L (23-29); Chloride 104 mEq/L (98-107); Glucose 189 mg/dL (70-105); Magnesium 2.2 mg/dL (1.6-2.6); Osmolality,Calculated 294 (280-300); Potassium 3.6 mEq/L (3.5-5.1); Sodium 139 mEq/L (136-145); Troponin I < 0.03 ng/mL (< 0.04); eGFR For Non-African Americans 54 (> 60)
[2018-07-13 08:39] LABS: Thyroid Stimulating Hormone 4.033 mcIU/mL (0.340-5.600)
[2018-07-13] MEDS ORDERED: GI Cocktail 40 ML EACH PO ONE (08:47)
[2018-07-13] MEDS ORDERED: Aspirin 81 MG TAB.CHEW PO SCH (09:00)
--- NOTE | 2018-07-13 12:29 | Internal Med History&Physical ---
Date of Encounter: 07/13/18 Time of Encounter: 11:00 Internal Medicine - H&P: HPI Chief complaint: Chest pain Admitted From: Home History of present illness: Patient is a 73-year-old female with past medical history significant for hypertension, hyperlipidemia, diabetes, GERD and generalized anxiety disorder who presents to the ER due to palpitations. Reports a 24-hour onset of palpitations and she states usually when her acid reflux acts up she has associated symptoms of palpitations. She denies any associated symptoms of chest pain, shortness of breath, nausea/vomiting or abdominal pain. Patient was concerned and decided come to the ER for further evaluation. In the ER, patients labs were unremarkable including negative troponin. Dani t will be admitted to the observation unit for ACS rule out. Past Med Surg Social Fam HX - Past Medical History Medical history: diabetes, GERD, hyperlipidemia, hypertension, renal disease Psychiatric history: anxiety - Past Surgical History Surgical History: cholecystectomy - Social History Smoking Status: Never smoker Smokeless Tobacco Status: No Alcohol use: none Drug use: none - Family History Father Living Status: Cause of : Blood clot Hx Family Endocrine Disorder: Yes (DM) Internal Medicine - H&P: Meds ALPRAZolam [Xanax 0.25 MG Tablet] 0.25 mg PO QAM 07/02/16 [History] ALPRAZolam [Xanax 0.5 MG Tablet] 0.5 mg PO HS 07/02/16 [History] Aspirin Enteric Coated [Aspirin EC] 81 mg PO HS 07/02/16 [History] Atorvastatin Calcium [Lipitor] 20 mg PO HS 07/02/16 [History] Cyanocobalamin (Vitamin B-12) [Vitamin B-12] 500 mcg PO DAILY 07/02/16 [History] DiphenhydraMINE [Benadryl] 25 mg PO HS 07/02/16 [History] SitaGLIPtin [Januvia] 100 mg PO QAM 07/02/16 [History] Glimepiride [Amaryl] 2 mg PO 0800 08/11/17 [History] Omeprazole 20 mg PO DAILY PRN 08/11/17 [History] Allergy/AdvReac Type Severity Reaction Status Date / Time cephalexin [From Keflex] Allergy Rash Verified 08/11/17 10:20 metformin Allergy See Verified 08/11/17 10:20 Comments nitrofurantoin Allergy Chills Verified 08/11/17 10:20 [From Macrobid] sitagliptin [From Janumet] Allergy See Verified 08/11/17 10:20 Comments Sulfa (Sulfonamide Allergy Rash Verified 08/11/17 10:20 Antibiotics) sulfamethoxazole Allergy Rash Verified 08/11/17 10:20 [From Septra] trimethoprim [From Novra] Allergy Rash Verified 08/11/17 10:20 All Systems PM: A 10-system review of systems was performed and is negative for pertinent findings except as documented above in the HPI. - Constitutional Vitals: Temp Pulse Resp BP Pulse Ox 97.3 F L 77 18 152/78 99 07/13/18 11:37 07/13/18 11:37 07/13/18 11:37 07/13/18 11:37 07/13/18 11:37 Exam: General appearance: Present: A&O X 3, no acute distress - Head Head exam: Present: normocephalic - Eye Eye exam: Present: normal appearance - ENT ENT exam: Present: mucous membranes moist - Respiratory Respiratory exam: Present: CTAB. Absent: accessory muscle use, rales, rhonchi, wheezes - Cardiovascular Cardiovascular exam: Present: RRR, +S1, +S2. Absent: diastolic murmur, gallop, rubs, systolic murmur - GI/Abdominal GI/Abdominal exam: Present: normal bowel sounds, soft, no peritoneal signs. Absent: distended, tenderness - Extremities Exam Extremities exam: Absent: pedal edema - Neurological Exam Neurological exam: Present: alert, oriented X3, no focal deficits. Absent: altered - Psychiatric Psychiatric exam: -normal mood Skin exam: -normal color Internal Med - H&P Results - Labs CBC & Chem 7: 07/13/18 07:49 07/13/18 07:49 Labs: Short CBC 07/13/18 Range/Units 07:49 WBC 6.9 (4.3-11.1) K/mcL Hgb 12.9 (11.5-15.4) g/dL Hct 39.2 (35.3-44.9) % Plt Count 182 (140-400) K/mcL Neutrophils # 3.9 (1.6-8.9) K/mcL BMP 07/13/18 07:49 Sodium 139 Potassium 3.6 Chloride 104 Carbon Dioxide 27 BUN 16 Creatinine 1.00 Glucose 189 H Calcium 9.2 Cardiac Enzymes 07/13/18 Range/Units 07:49 Troponin I < 0.03 (< 0.04) ng/mL - Impressions ITS Impressions Chest X-Ray 07/13/18 07:18 IMPRESSION: No acute cardiopulmonary findings. D/ / Lisa Kirby MD / Lisa Kirby MD Interpreting Provider: Lisa Kirby MD - Assessment and Plan (1) Ventricular trigeminy Current Visit: Yes Status: Acute Assessment and plan: Patient reports 24-hour onset of palpitations found to have ventricular trigeminy on EKG First set of troponins negative Will trend serial troponins and order echocardiogram. Will also consult cardiology and appreciate recommendations. 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 insulin use: without joint terminal attack controller use Diabetes mellitus complication status: without complication Qualified Code(s): E11.9 - Type 2 diabetes mellitus without complications (3) HLD (hyperlipidemia) Current Visit: No Status: Chronic Assessment and plan: Continue home dose of statin Qualifiers: Hyperlipidemia type: unspecified Qualified Code(s): E78.5 - Hyperlipidemia, unspecified (4) GERD (gastroesophageal reflux disease) Current Visit: Yes Status: Acute Assessment and plan: Continue home dose of PPI Qualifiers: Esophagitis presence: with esophagitis Qualified Code(s): K21.0 - Gastro-esophageal reflux disease with esophagitis (5) Anxiety Current Visit: No Status: Acute Assessment and plan: Will continue home dose of Xanax (6) DVT prophylaxis Current Visit: Yes Status: Acute Assessment and plan: Subcutaneous heparin - Time Spent With Patient Total time spent is greater than 50% in coordination of care (as documented) at patient's floor/unit and/or counseling patient:
[2018-07-13] MEDS ORDERED: Naloxone 0.4 MG/ML INJ IVP PRN (12:45)
--- NOTE | 2018-07-13 14:19 | Cardiology Consult Note ---
Addendum entered and electronically signed by Zev Hare MD 07/13/18 17:07: Patient was seen and evaluated independently by me. Findings, assessment and plan were discussed at length with patient, questions answered. Agree with nurse practitioner's/resident's documentation. Addition as follows, 73 yoCF ho HTN, DM, CKD, GERD. P/w 2 days of recurrent "acid reflux" sensation with palpitations at rest without relief as usual by PPI. Different from prior chest pain. ECG revealed dynamic TWI inferior and anterolateral leads and PACs/junctional with left axis deviation pattern followed by possible fusion beats. Trop neg x2. Hypertensive, euvolemia on exam. 2017 Pharm SPECT for chest pain revealed possible anterior ischemia with normal EF. LHC declined by pt. A: Atypical chest pain Dynamic ECG change Palpitations, PACs/junctional beats DM HTN CKD P: plan pharm SPECT if trop neg x3 c/w ASA, statin Zev Hare MD, PhD Original Note: Date of Encounter: 07/13/18 Time of Encounter: 13:30 Assessment and Plan (1) Abnormal ECG Current Visit: Yes Status: Acute Per cardiology: -Initial ECG with SR, T wave inversions in inferior and anterolateral leads. -Admitted to GERD symptoms, however not relieved by omeprazole. -Stress test 2017 with possible ischemia vs breast attenuation. -Troponin negative. -ON asa, statin. -Continue to trend trop. Will add bb -Atypical symptoms, with abnormal ECG, Discussed with , plan for stress tomorrow. (2) Palpitations Current Visit: Yes Status: Acute Per cardiology: -ADmitted with palpitations. -ECG reviewed with and PACs noted. -Will add BB. Discussion w patient/family: The assessment and plan as outlined above was discussed with the patient who expressed understanding and agreement. All questions were answered. Thank you for involving us in the care of your patient. Please call with any questions. Discussed and reviewed with History of Present Illness Consult date: 07/13/18 Requesting physician: Merritt Metcalf Consult reason: trigeminy Chief complaint: GERD, palpitations History of present illness: Ms. Pyle is a 73 year old female with a relevant past medical history of DM, HTN, GERD, renal insufficiency, who presented to [facility] with complaints of GERD and palpitations. Patient states Thursday she had symptoms similar to her EGRD, however states was not relieved by omeprazole. States her typical GERD is relieved by omeprazole. Patient also reports intermittent palpitations. States it felt like her heart "was skipping beats." Denies chest pain, tightness. Denies increased shortness of breath. Deneis fatigue. States she was up cleaning her house yesterday. Past Med Surg Social Fam HX - Past Medical History Attestation: Yes The following information was validated with the patient. Source: patient Medical history: diabetes, GERD, hyperlipidemia, hypertension, renal disease Psychiatric history: anxiety - Past Surgical History Surgical History: cholecystectomy - Social History Smoking Status: Never smoker Smokeless Tobacco Status: No Alcohol use: none Drug use: none - Family History Father Living Status: Cause of : Blood clot Hx Family Endocrine Disorder: Yes (DM) Medications and Allergies ALPRAZolam [Xanax 0.25 MG Tablet] 0.25 mg PO QAM 07/02/16 [History] ALPRAZolam [Xanax 0.5 MG Tablet] 0.5 mg PO HS 07/02/16 [History] Aspirin Enteric Coated [Aspirin EC] 81 mg PO HS 07/02/16 [History] Atorvastatin Calcium [Lipitor] 20 mg PO HS 07/02/16 [History] Cyanocobalamin (Vitamin B-12) [Vitamin B-12] 500 mcg PO DAILY 07/02/16 [History] DiphenhydraMINE [Benadryl] 25 mg PO HS 07/02/16 [History] SitaGLIPtin [Januvia] 100 mg PO QAM 07/02/16 [History] Glimepiride [Amaryl] 2 mg PO 0800 08/11/17 [History] Omeprazole 20 mg PO DAILY PRN 08/11/17 [History] Allergy/AdvReac Type Severity Reaction Status Date / Time cephalexin [From Keflex] Allergy Rash Verified 08/11/17 10:20 metformin Allergy See Verified 08/11/17 10:20 Comments nitrofurantoin Allergy Chills Verified 08/11/17 10:20 [From Macrobid] sitagliptin [From Janumet] Allergy See Verified 08/11/17 10:20 Comments Sulfa (Sulfonamide Allergy Rash Verified 08/11/17 10:20 Antibiotics) sulfamethoxazole Allergy Rash Verified 08/11/17 10:20 [From Septra] trimethoprim [From ] Allergy Rash Verified 08/11/17 10:20 All Systems Review: The remainder of the systems were reviewed and are negative - Cardiovascular Cardiovascular: as per HPI, palpitations Physical Examination Vital Signs, Last 4 Hours Temp Pulse Resp BP Pulse Ox 07/13/18 11:37 97.3 F L 77 18 152/78 99 07/13/18 11:15 18 180/82 General: Conversant, No Apparent Distress HEENT: Atraumatic, Normocephaly, Mucus Membranes Moist Neck: No JVD, Normal carotid pulses Cardiac: Reg Rate and Rhythm, Normal S1 and S2, No Murmur Lungs: Normal Breath Sounds, No Wheeze, Rales, Rhonchi Neuro: Alert and responsive, No focal deficits noted Abdomen: Soft, Non-Tender Skin: No rashes noted on visualized skin Musculoskeletal: No Chest Wall Tenderness Extremities: No Clubbing, No Cyanosis, No Edema, Normal Pulses Results 07/13/18 07:49 07/13/18 07:49 Lab Results Impressions Chest X-Ray 07/13/18 07:18 IMPRESSION: No acute cardiopulmonary findings. D/ / Lisa Kirby MD / Lisa Kirby MD Interpreting Provider: Lisa Kirby MD Active Medications Alprazolam (Xanax) 0.25 mg PO QAM [facility]; Protocol Stop: 01/13/19 09:01 Alprazolam (Xanax) 0.5 mg PO HS [facility]; Protocol Stop: 01/12/19 21:01 Aspirin (Aspirin Ec) 81 mg PO HS [facility] Stop: 01/12/19 21:01 Diphenhydramine HCl (Benadryl) 25 mg PO HS [facility] Stop: 01/12/19 21:01 Heparin Sodium (Porcine) (Heparin) 5,000 unit SQ Q8HR [facility] Stop: 01/12/19 16:01 Metoprolol Tartrate (Lopressor) 25 mg PO BID [facility] Stop: 01/12/19 21:01 Naloxone HCl (Narcan) 0.4 mg IVP Q2M PRN PRN Reason: SEE COMMENTS Stop: 01/12/19 12:46 Non-Formulary Medication (Atorvastatin Calcium [Lipitor]) 20 mg PO HS [facility] Stop: 01/12/19 21:01 Non-Formulary Medication (Cyanocobalamin (Vitamin B-12) [Vitamin B-12]) 500 mcg PO DAILY [facility] Stop: 01/13/19 09:01 Non-Formulary Medication (Omeprazole [Omeprazole]) 20 mg PO DAILY PRN PRN Reason: Indigestion Sitagliptin Phosphate (Januvia) 100 mg PO QAM [facility] Stop: 01/13/19 09:01 Laboratory Tests 07/13/18 07/13/18 07:49 07:49 Hgb 12.9 Potassium 3.6 Creatinine 1.00 Magnesium 2.2 Troponin I < 0.03 TSH 4.033 - Imaging and Cardiology Chest Xray: report reviewed Stress Test: report reviewed Echo: pending - EKG Interpretation EKG results cardiology: personally reviewed (ECG with SR, T wave inversions noted in inferior and anterolateral leads.) Consult Discharge Plan - Plan Referrals: Mike Carranza MD [Primary Care Provider] -
[2018-07-13] MEDS: *HR* Heparin 5,000 UNIT/ML VIAL SQ SCH (16:58)
[2018-07-13] MEDS: ALPRAZolam 0.5 MG TABLET PO SCH (21:20)
[2018-07-13] MEDS: Aspirin Enteric Coated 81 MG Tablet PO SCH (21:20)
[2018-07-14] MEDS: *HR* Heparin 5,000 UNIT/ML VIAL SQ SCH ×4 (00:36→23:28)
[2018-07-14 00:47] LABS: Basophils % 0.6 %; Eosinophils % 0.4 %; Hematocrit 36.7 % (35.3-44.9); Immature Granulocytes % 0.3 % (0-4); Lymphocytes % 43.4 %; Mean Corpuscular HGB Conc 32.7 g/dL (31.6-35.5); Mean Corpuscular Hemoglobin 29.9 pg (28.0-33.3); Mean Corpuscular Volume 91.3 fL (83.0-100.0); Mean Platelet Volume 10.1 fL (9.4-12.4); Monocytes # 0.5 K/mcL (0.0-1.3); Monocytes % 6.8 %; Neutrophils # 3.4 K/mcL (1.6-8.9); Platelet Count 182 K/mcL (140-400); Red Blood Count 4.02 M/mcL (3.82-4.97); Red Cell Distribution Width 12.7 % (11.5-14.5); Segmented Neutrophils % 48.5 %
[2018-07-14 01:05] LABS: BUN/Creatinine Ratio 16 (6-26); Blood Urea Nitrogen 17 mg/dL (8-23); Calcium 8.9 mg/dL (8.6-10.3); Carbon Dioxide 27 mEq/L (23-29); Chloride 105 mEq/L (98-107); Glucose 207 mg/dL (70-105); Osmolality,Calculated 292 (280-300); Potassium 3.9 mEq/L (3.5-5.1); Sodium 137 mEq/L (136-145); eGFR For Non-African Americans 50 (> 60)
[2018-07-14] MEDS ORDERED: Regadenoson 0.4 MG/5 ML SYRINGE IVP ONE ×2 (06:28→06:45)
--- NOTE | 2018-07-14 08:33 | Electrocardiograph Report ---
[facility] [employer] Test Date: 2018-07-13 Pat Name: Tessa Pyle Department: EXAM3 Room: 3B23 Gender: F Hog Tender: : 1945 Requested By: Julio Aguilar Order Number: [id number] Reading MD: Alexsander Arceo Measurements Intervals [place] Rate: 82 P: 65 SD: 209 QRS: 84 QRSD: 98 T: -53 QT: 363 QTc: 424 Interpretive Statements Sinus rhythm Borderline right axis deviation Abnormal T, consider ischemia, diffuse leads Electronically Signed On 07-14-2018 8:32:16 EDT by Alexsander Arceo
--- NOTE | 2018-07-14 08:34 | Electrocardiograph Report ---
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
[2018-07-14] MEDS ORDERED: *HR* SitaGLIPtin 100 MG TABLET PO SCH (09:00)
--- NOTE | 2018-07-14 09:12 | Event Note ---
Date of Encounter: 07/14/18 Time of Encounter: 09:11 - Cardiology Event Note Stress test recommended and currently pending. Further cardiology recs pending stress test.
[2018-07-14] MEDS: ALPRAZolam 0.25 MG TABLET PO SCH (10:09)
[2018-07-14] MEDS: Cyanocobalamin (B-12) 1,000 MCG TABLET PO SCH (10:09)
[2018-07-14] MEDS ORDERED: GI Cocktail 40 ML EACH PO PRN (11:07)
--- NOTE | 2018-07-14 16:54 | Internal Med Progress Note ---
Hospitalist Progress Note - Encounter Date of Encounter: 07/14/18 Time of Encounter: 16:52 - Subjective Interval History: Pt seen and examined in the room. Palpitation improved with GI cocktail. No chest pain, sob, or syncope. - Exam Vitals: Temp Pulse Resp BP Pulse Ox 97.9 F 62 14 152/82 96 07/14/18 16:27 07/14/18 16:27 07/14/18 16:27 07/14/18 16:27 07/14/18 16:27 Exam: General appearance: Present: A&O X 3, no acute distress - Head Head exam: Present: normocephalic - Eye Eye exam: Present: normal appearance - ENT ENT exam: Present: mucous membranes moist - Respiratory Respiratory exam: Present: CTAB. Absent: accessory muscle use, rales, rhonchi, wheezes - Cardiovascular Cardiovascular exam: Present: RRR, +S1, +S2. Absent: diastolic murmur, gallop, rubs, systolic murmur - GI/Abdominal GI/Abdominal exam: Present: normal bowel sounds, soft, no peritoneal signs. Absent: distended, tenderness - Extremities Exam Extremities exam: Absent: pedal edema - Neurological Exam Neurological exam: Present: alert, oriented X3, no focal deficits. Absent: altered - Psychiatric Psychiatric exam: -normal mood Skin exam: -normal color - Assessment and Plan (1) Diabetes Current Visit: No Status: Chronic Assessment and Plan: continue Januvia and hold glimepiride while covering with sliding-scale insulin (2) Anxiety Current Visit: No Status: Acute Assessment and Plan: continue home dose of Xanax (3) HLD (hyperlipidemia) Current Visit: No Status: Chronic Assessment and Plan: Continue home dose of statin (4) Ventricular trigeminy Current Visit: Yes Status: Acute Assessment and Plan: Patient reports 24-hour onset of palpitations found to have ventricular trigeminy on EKG trop negative. ECHO unremarkable. Pending stress test results. (5) DVT prophylaxis Current Visit: Yes Status: Acute Assessment and Plan: Subcutaneous heparin (6) GERD (gastroesophageal reflux disease) Current Visit: Yes Status: Acute Assessment and Plan: Continue home dose of PPI - Time Spent with Patient Total time spent is greater than 50% in coordination of care (as documented) at patient's floor/unit and/or counseling patient: Greater than 35 minutes Plan of Care Discussed with: patient Internal Medicine: Result - Labs CBC & Chem 7: 07/14/18 00:33 07/14/18 00:33 Labs: Short CBC 07/14/18 Range/Units 00:33 WBC 7.0 (4.3-11.1) K/mcL Hgb 12.0 (11.5-15.4) g/dL Hct 36.7 (35.3-44.9) % Plt Count 182 (140-400) K/mcL Neutrophils # 3.4 (1.6-8.9) K/mcL BMP 07/14/18 00:33 Sodium 137 Potassium 3.9 Chloride 105 Carbon Dioxide 27 BUN 17 Creatinine 1.07 Glucose 207 H Calcium 8.9 Cardiac Enzymes 07/13/18 07/14/18 Range/Units 20:23 00:33 Troponin I < 0.03 < 0.03 (< 0.04) ng/mL - ABG Interpretation ABG results: PT/INR, D-dimer PT 11.9 Seconds (9.4-12.1) 07/13/18 07:49 - Impressions Impressions Echocardiogram 07/13/18 12:45 Impressions: LVEF 60-65%. Normal LV chamber size, wall thickness and function. Mild left ventricular diastolic dysfunction. Normal right ventricular structure and function. No evidence of pulmonary hypertension. No significant valvular dysfunction. Left Ventricular Wall Motion: Rest Echo Findings All wall segments showed normal motion. Findings: Study Quality * Technically adequate exam. ECG Findings * Normal sinus rhythm. Left Ventricle * LVEF 60-65%. * Normal LV chamber size, wall thickness and function. * Mild left ventricular diastolic dysfunction. Right Ventricle * Normal right ventricular structure and function. Left Atrium * Mildly dilated left atrium. Right Atrium * Normal right atrial size. Aortic Valve * Aortic valve not well visualized. * No aortic regurgitation. * No aortic stenosis. Mitral Valve * Normal mitral valve structure and function. * No mitral regurgitation. * No mitral stenosis. Tricuspid Valve * Normal tricuspid valve structure and function. * Trace tricuspid regurgitation. * No evidence of pulmonary hypertension. Pulmonic Valve * Normal pulmonic valve structure and function. * No pulmonic regurgitation. Aorta * Normally sized aortic root. Pericardium * The pericardium appears normal. IVC * Normal IVC dimensions and inspiratory collapse. Pulmonary Artery * Normal visualized portions of the main pulmonary artery. Consult Discharge Plan - Plan Referrals: Mike Carranza MD [Primary Care Provider] - 07/23/18 1:30 pm (1) Diabetes Qualifiers: Diabetes mellitus type: type 2 Diabetes mellitus fci insulin use: without fci use Diabetes mellitus complication status: without complication Qualified Code(s): E11.9 - Type 2 diabetes mellitus without complications (3) HLD (hyperlipidemia) Qualifiers: Hyperlipidemia type: unspecified Qualified Code(s): E78.5 - Hyperlipidemia, unspecified (6) GERD (gastroesophageal reflux disease) Qualifiers: Esophagitis presence: with esophagitis Qualified Code(s): K21.0 - Gastro- esophageal reflux disease with esophagitis
[2018-07-14] MEDS: Aspirin Enteric Coated 81 MG Tablet PO SCH (19:57)
[2018-07-14] MEDS: ALPRAZolam 0.5 MG TABLET PO SCH (19:57)
[2018-07-15] MEDS: ALPRAZolam 0.25 MG TABLET PO SCH (09:44)
[2018-07-15] MEDS: *HR* SitaGLIPtin 100 MG TABLET PO SCH (09:44)
[2018-07-15] MEDS: Cyanocobalamin (B-12) 1,000 MCG TABLET PO SCH (09:44)
[2018-07-15] MEDS: *HR* Heparin 5,000 UNIT/ML VIAL SQ SCH ×3 (09:44→23:26)
--- NOTE | 2018-07-15 12:40 | Event Note ---
Date of Encounter: 07/15/18 Time of Encounter: 12:30 - Cardiology Event Note Laboratory Tests 07/13/18 07/14/18 07/14/18 07:49 00:33 00:33 Hgb 12.0 Hct 36.7 INR 1.1 Creatinine 1.07 Est GFR (Non-Af Amer) 50 L Nonexercise nuclear stress test results reviewed and showed "Medium-sized, mild intensity stress perfusion defect involving the anterior wall. Findings may represent breast attenuation artifact. Ischemia cannot be excluded". Findings similar to stress test in 2017. Has never had LHC. Discussed with Dr. Hare with recs for LHC. I had lengthy discussion with patient and patient is agreeable to proceed with catheterization. All questions answered.
--- NOTE | 2018-07-15 15:04 | Pre-Sedation Evaluation ---
Pre-sedation evaluation - Pre-sedation checklist Date of procedure: 07/15/18 Procedure: cath Recent Vitals: Last Vital Signs Temp 98.0 F 07/15/18 11:41 Pulse 54 07/15/18 11:41 Resp 18 07/15/18 11:41 BP 114/71 07/15/18 11:41 Pulse Ox 94 07/15/18 11:41 H&P (including ROS) documented in medical record: Yes Previous reaction to sedatives/anesthetics: Yes; explain in comment Dietary Status: NPO after Midnight Airway Assessment: Patient can open mouth completely, TMJ function normal Possible difficult airway: No ASA Classification *see protocol: CLASS II-Mild systemic disease Cardiac Registry (Cardio Only) - Functional Capacity Functional Capacity: >=4 METS with symptoms - Clincal Frailty Scale Clinical Frailty Scale: Managing Well
[2018-07-15] MEDS ORDERED: Heparin 1,000 UNITS/500 mL 500 ML ONE (15:05)
[2018-07-15] MEDS ORDERED: 0.9 % Sodium Chloride 1,000 ML ONE (15:05)
[2018-07-15] MEDS ORDERED: *HR* Heparin 10,000 UNIT/10 ML VIAL ONE (15:05)
[2018-07-15] MEDS ORDERED: ISOVUE-370 200 ML INFUS..BTL ONE (15:05)
[2018-07-15] MEDS ORDERED: Nitroglycerin 1,000 MCG/10 ML VIAL IV ONE (15:06)
[2018-07-15] MEDS ORDERED: *HR* Midazolam HCl 2 MG/2 ML VIAL ONE (15:27)
[2018-07-15] MEDS ORDERED: Verapamil 5 MG/2 ML VIAL ONE (15:27)
--- NOTE | 2018-07-15 15:57 | Event Note ---
Date of Encounter: 07/15/18 Time of Encounter: 15:56 - Cardiology Event Note Cath completed lvef 60-65% Left dominant normal normal coronary arteries. Hyprtenson present recommend bp control.
--- NOTE | 2018-07-15 16:05 | Event Note ---
Date of Encounter: 07/15/18 Time of Encounter: 16:05 - Cardiology Event Note Will add low dose ACEI. Cardiology signoff, reconsult as needed, follow-up arranged. No intervention warranted.
--- NOTE | 2018-07-15 16:08 | Discharge Summary ---
- NOTES TO OUTPATIENT PROVIDER Notes to Outpatient Provider: f/u with PCP within a week. Orders not resulted at time of discharge: Pending orders 07/13/18 14:36 NM kj perf SPECT multi [NM] Routine 07/15/18 14:37 CL Cardiac Catheterization [CL] Routine Date of Encounter: 07/15/18 Time of Encounter: 16:05 - Discharge Diagnosis (1) Diabetes Priority: Secondary Status: Chronic Qualifiers: Diabetes mellitus type: type 2 Diabetes mellitus nursing home insulin use: without parts counterman use Diabetes mellitus complication status: without complication Qualified Code(s): E11.9 - Type 2 diabetes mellitus without complications (2) Anxiety Priority: Secondary Status: Chronic (3) HLD (hyperlipidemia) Priority: Secondary Status: Chronic Qualifiers: Hyperlipidemia type: unspecified Qualified Code(s): E78.5 - Hyperlipidemia, unspecified (4) Ventricular trigeminy Priority: Primary Status: Acute (5) DVT prophylaxis Priority: Primary Status: Acute (6) GERD (gastroesophageal reflux disease) Priority: Secondary Status: Chronic Qualifiers: Esophagitis presence: with esophagitis Qualified Code(s): K21.0 - Gastro- esophageal reflux disease with esophagitis Hospital course: Patient is a 73-year-old female with past medical history significant for hypertension, hyperlipidemia, diabetes, GERD and generalized anxiety disorder who presents to the ER due to palpitations. Reports a 24-hour onset of palpitations and she states usually when her acid reflux acts up she has associated symptoms of palpitations. She denies any associated symptoms of chest pain, shortness of breath, nausea/vomiting or abdominal pain. Patient was concerned and decided come to the ER for further evaluation. In the ER, patients labs were unremarkable including negative troponin. Patient will be admitted to the observation unit for ACS rule out. Pt underwent ECHO which was unremarkable. A stress test was performed which showed medium sized, mild intensity stress perfusion defect involving the anterior wall. Findings may represent breast attenuation artifact. Ischemia cannot be excluded. No perfusion evidence for infarct. Pharmacologic stress ECG is non diagnostic for ischemia due to baseline non-specific ST and T changes. Gated EF = 65%. Cardiac cath was performed on 07/15 which showed normal coronary arteries. medical management was recommended. Pt will be discharged home today, BP meds were adjusted, f/u with PCP as scheduled. Discharge discussed with: patient Time spent discussing smoking cessation with patient: more than 10 minutes - Time Spent with Patient Total time spent providing and/or coordinating discharge services: Time spent: Greater than 30 minutes - Discharge Medications Prescriptions: New GI Cocktail [Gi Cocktail] 40 ml PO TID PRN #20 each PRN Reason: Abdominal Distention Lisinopril [Zestril] 5 mg PO DAILY #30 tablet Metoprolol [Lopressor] 25 mg PO BID #60 tablet Continue DiphenhydraMINE [Benadryl] 25 mg PO HS Aspirin Enteric Coated [Aspirin EC] 81 mg PO HS SitaGLIPtin [Januvia] 100 mg PO QAM Atorvastatin Calcium [Lipitor] 20 mg PO HS ALPRAZolam [Xanax 0.5 MG Tablet] 0.25 mg PO BID Cyanocobalamin (Vitamin B-12) [Vitamin B-12] 500 mcg PO DAILY Glimepiride [Amaryl] 2 mg PO 0800 Omeprazole 20 mg PO DAILY PRN PRN Reason: Indigestion Home Medications: ALPRAZolam [Xanax 0.5 MG Tablet] 0.25 mg PO BID 07/02/16 [History] Aspirin Enteric Coated [Aspirin EC] 81 mg PO HS 07/02/16 [History] Atorvastatin Calcium [Lipitor] 20 mg PO HS 07/02/16 [History] Cyanocobalamin (Vitamin B-12) [Vitamin B-12] 500 mcg PO DAILY 07/02/16 [History] DiphenhydraMINE [Benadryl] 25 mg PO HS 07/02/16 [History] SitaGLIPtin [Januvia] 100 mg PO QAM 07/02/16 [History] Glimepiride [Amaryl] 2 mg PO 0800 08/11/17 [History] Omeprazole 20 mg PO DAILY PRN 08/11/17 [History] GI Cocktail [Gi Cocktail] 40 ml PO TID PRN #20 each 07/15/18 [Rx] Lisinopril [Zestril] 5 mg PO DAILY #30 tablet 07/15/18 [Rx] Metoprolol [Lopressor] 25 mg PO BID #60 tablet 07/15/18 [Rx] Allergies/Adverse Reactions: Allergy/AdvReac Type Severity Reaction Status Date / Time cephalexin [From Keflex] Allergy Rash Verified 08/11/17 10:20 metformin Allergy See Verified 08/11/17 10:20 Comments nitrofurantoin Allergy Chills Verified 08/11/17 10:20 [From Macrobid] Sulfa (Sulfonamide Allergy Rash Verified 08/11/17 10:20 Antibiotics) sulfamethoxazole Allergy Rash Verified 08/11/17 10:20 [From Septra] trimethoprim [From ] Allergy Rash Verified 08/11/17 10:20 Date of admission: 07/13/18 10:56 Primary care physician: Mike Carranza MD Consults: 07/13/18 12:44 Consult to Cardiology [CONS] Routine Comment: Consulting Provider: Cardiology Secretary Reason for Consult: Ventricular trigeminy with palpitations Call Completed: Yes Anticipated date of discharge: 07/15/18 - Constitutional Vitals: Temp Pulse Resp BP Pulse Ox 98.0 F 54 18 114/71 94 07/15/18 11:41 07/15/18 11:41 07/15/18 11:41 07/15/18 11:41 07/15/18 11:41 General appearance: Present: A&O X 3 Exam: General appearance: Present: A&O X 3, no acute distress - Head Head exam: Present: normocephalic - Eye Eye exam: Present: normal appearance - ENT ENT exam: Present: mucous membranes moist - Respiratory Respiratory exam: Present: CTAB. Absent: accessory muscle use, rales, rhonchi, wheezes - Cardiovascular Cardiovascular exam: Present: RRR, +S1, +S2. Absent: diastolic murmur, gallop, rubs, systolic murmur - GI/Abdominal GI/Abdominal exam: Present: normal bowel sounds, soft, no peritoneal signs. Absent: distended, tenderness - Extremities Exam Extremities exam: Absent: pedal edema - Neurological Exam Neurological exam: Present: alert, oriented X3, no focal deficits. Absent: altered - Psychiatric Psychiatric exam: -normal mood Skin exam: -normal color - Patient Status Disposition: Home, Self-Care Condition: Good Functional capacity at discharge: independent ambulation Overall status at discharge: patient is progressing back to baseline - Discharge Instructions Follow Up With: Mike Carranza MD [Primary Care Provider] - 07/23/18 1:30 pm - Diet and Activity Activity: increase activity as tolerated Diet: advance to your usual diet
--- NOTE | 2018-07-15 16:11 | Invasive Diagnostic Lab Proc ---
Name: Tessa Pyle Date of Study: 07/15/2018 Date: 1945 Ht: 66.9in Medical Record#: [id number] Age: 73 Wt: 253.00lb Gender: Female BSA: 2.23 Order #: [id number] BMI: 39.74 Physicians Procedure Physician: Duke Manjarrez MD Referring MD: Referring MD: Staff Name Position Time In Ronaldo Bae RT (R) Monitor 03:27 PM Hubert Ruffin RN Chain Mortiser Operator 03:27 PM Sandra Metzger RT (R) Scrub 03:27 PM Gypsy Chacon RN Chain Mortiser Operator 03:27 PM Indications Indication Abnormal Test - Stress Procedures Performed Procedure L HRT ARTERY/VENTRICLE ANGIO Pre-Procedure Checklist Informed consent is complete signed and on chart. H&P is on chart. ID band is on and ID verified with patient. Patient NPO for procedure The procedure was described for the patient and questions were answered. Blood Pressure: 114/71 ECG is on chart. Rhythm: NSR Plan of Care Patient will tolerate the procedure without complications. Adequate level of comfort will be maintained. Hemodynamics will remain stable Patient will recover from procedure without complications. Respiratory function will be maintained. Cardiac rhythm will remain stable. Patient temperature will be maintained. Patient and/or family have verbalized understanding of the procedure. Patient Education Chief Complaint/Reason for Test: Cardiac Cath Developmental Category: Geriatric (65+ years) Developmentally Appropriate for Age: Yes Learning Barriers: None Education Needs: Procedure Education Method: Verbal Information Taught: Cardiac Cath Educational Evaluation: Able to repeat information Intravenous Access Time IV Size Location DC'd Fluid/Drip Rate Units RN 03:26 PM 22g 1" Patent On Arrival Lt Hand 0.9NaCl 25 ml/hr Gypsy Chacon RN Allergies Sulfa (Sulfonamide Antibiotics) cephalexin sulfamethoxazole nitrofurantoin trimethoprim Vital Signs Time BP (mmHg) HR (bpm) O2 Sat. RR (bpm) LOC 03:27 PM 114 / 71 69 94 % 18 5 = Fully awake and oriented or at pre-proc level 03:28 PM / % 5 = Fully awake and oriented or at pre-proc level 03:28 PM / % 4 = Oriented but drowsy 03:33 PM 177 / 81 64 97 % 10 03:38 PM 158 / 80 64 99 % 26 03:42 PM 157 / 84 73 98 % 23 03:47 PM 162 / 79 79 98 % 23 03:52 PM 159 / 74 78 99 % 19 03:43 PM / % 5 = Fully awake and oriented or at pre-proc level Procedural Medications Time Medication Dose Units Method Given By 03:31 PM Oxygen 2 L/min nasal cannula Gypsy Chacon RN 03:34 PM Versed 2 mg Intravenous Hubert Ruffin RN 03:40 PM Lidocaine 2% 2 ml Subcutaneous Duke Manjarrez MD 03:41 PM Heparin 4000 units Nitroglycerin 200 mcg Verapamil 2.5 mg Intraarterial Duke Manjarrez MD ASA Classification: CLASS III- Severe systemic disease (i.e. prior AMI, diabetes with vascular complications, morbid obesity) Dasha Score Preprocedure Postprocedure Activity 2- Moves 4 extremities sustained head lift Activity Circulation 2- SBP +/= 20 points of pre-anesthetic level Circulation Consciousness 2- Awake and alert oriented x 3 Consciousness O2 Saturation 2- Able to maintain O2 satruation of 92% on room air O2 Saturation Respiratory 2- Able to deep breathe and cough well Respiratory Total Score 10 Total Score Contrast Agent: Isovue Diagnostic Contrast: 75 ml Total Contrast: 75 ml Fluoro Dose: 14 mGy Procedure Log Time Note Enter By 03:27 PM Pt arrived to optical laboratory manager 2 at 15:27 [email or web address] 03:27 PM Patient charges- Angio tray pack, Navilyst 3mm J, Pulse Oximetry and ACIST tubing and transducer [email or web address] 03:27 PM Ronaldo Bae RT (R) Position: Monitor Time in: 15:27 [email or web address] 03:27 PM Hubert Ruffin RN Position: Chain Mortiser Operator Time in: 15:27 [email or web address] 03:27 PM Sandra Metzger RT (R) Position: Scrub Time in: 15:27 [email or web address] 03:28 PM Gypsy Chacon RN Position: Chain Mortiser Operator Time in: 15:27 [email or web address] 03:28 PM Case Delayed No [email or web address] 03:28 PM Physician arrived 15:28 [email or web address] 03:28 PM Meet and greet completed 3 03:28 PM Sign in performed according to hospital policy. Informed consent was obtained. [email or web address] 03:28 PM CathStat 03:28 PM Procedure start 15:28 [email or web address] 03:28 PM ASA Class CLASS III- Severe systemic disease (i.e. prior AMI, diabetes with vascular complications, morbid obesity) [email or web address] 03:28 PM Time: 15:28 Patient comfortable and pain free: Yes [email or web address] 03:28 PM Time: 15:28LOC: 5 = Fully awake and oriented or at pre-proc level [email or web address] 03:31 PM Hair removed from procedure site in procedure lab using clippers. Right wrist and Right groin prepped with Chloraprep by Sandra Metzger (Quintin), then patient was draped. Skin intact. [email or web address] 03:32 PM Time: 15:31 Oxygen on at 2 L/min per nasal cannula by Gypsy Chacon RN [email or web address] 03:32 PM Vitals capture started with the following parameters, Patient=Adult, Interval=5 min, Initial Kthkxzzw=099 mmHg, Deflation Rate=5 mmHg, Cuff placed on Right Arm 03:32 PM Recorded ECG: HR=71 Condition=Condition 1 03:33 PM HR=64 bpm, EWXO=437/81 mmhg, SpO2=97.0 %, Resp=10 B/min 03:34 PM Time: 15:34 Versed 2 mg Intravenous Given by Hubert Ruffin RN [email or web address] 03:37 PM Pressure channel 1 zeroed. 03:38 PM HR=64 bpm, VDFK=838/80 mmhg, SpO2=99.0 %, Resp=26 B/min 03:38 PM Time out was performed according to hospital policy. Conscious sedation and anesthesia was achieved (see medication log with in this report above) [email or web address] 03:40 PM Pressure channel 2 zeroed. 03:40 PM Time: 15:40 2 ml Lidocaine 2% to right radial Subcutaneous Given by Duke Manjarrez MD [email or web address] 03:41 PM Access obtained by percutaneous puncture. 6Fr 10cm Terumo Gilliam sheath placed in right Radial artery. [id number] [email or web address] 03:41 PM 0.035 260cm Navilyst 3mmJ wire [id number] [email or web address] 03:41 PM Time: 15:41 Patient given 4,000 units Heparin, 200 mcg Nitroglycerin, and 2.5 mg Verapamil Intraarterial by Duke Manjarrez MD. This is given to reduce risk of vessel spasm and thrombosis. [email or web address] 03:42 PM HR=73 bpm, IXDC=180/84 mmhg, SpO2=98.0 %, Resp=23 B/min 03:43 PM 5Fr FL3.5 catheter inserted over the wire [id number] [email or web address] 03:43 PM Time: 15:28 Patient comfortable and pain free: Yes [email or web address] 03:43 PM Time: 15:28LOC: 4 = Oriented but drowsy [email or web address] 03:44 PM Recorded Pressure: Ao, Ao, HR=78, Condition=Condition 1 (Aorta) Ao 16/15/15, (Aorta) Ao 144/84/109 03:44 PM Pressure channel 1 zeroed. 03:44 PM LCA angiography performed in multiple views. [email or web address] 03:46 PM Catheter removed [email or web address] 03:47 PM 5Fr FR 4 catheter inserted over the wire DN [email or web address] 03:47 PM HR=79 bpm, RACQ=694/79 mmhg, SpO2=98.0 %, Resp=23 B/min 03:48 PM RCA angiography performed in multiple views. [email or web address] 03:48 PM Recorded Pressure: Ao, Ao, HR=78, Condition=Condition 1 (Aorta) Ao 0/-1/0, (Aorta) Ao 156/64/108 03:48 PM Coronary Dominance: Left [email or web address] 03:49 PM Catheter removed [email or web address] 03:49 PM 5Fr Pigtail catheter inserted over the wire [facility] [email or web address] 03:49 PM Catheter crossed the aortic valve and was selectively placed in the left ventricle. Pressures recorded on pullback for left heart catheterization. [email or web address] 03:50 PM Recorded Pressure: LV, LV, HR=81, Condition=Condition 1 (Left Ventricle) LV 0/-3/-3, (Left Ventricle) LV 170/16/24 03:50 PM Recorded Pressure: LV, LV, HR=81, Condition=Condition 1 (Left Ventricle) LV -1/-2/-1, (Left Ventricle) LV 171/10/20 03:51 PM Bolus angiogram of left Ventricle complete: 12 ml/sec for a total of 36 mls [email or web address] 03:51 PM Recorded Pressure: LV, LV, Ao, HR=75, Condition=Condition 1 (Left Ventricle) LV 4/3/4, (Left Ventricle) LV 187/46/21, (Aorta) Ao 176/28/107 03:51 PM Catheter removed [email or web address] 03:52 PM HR=78 bpm, YVRW=357/74 mmhg, SpO2=99.0 %, Resp=19 B/min 03:53 PM Arterial sheath pulled, Vasc Band closure device used and was Successful S/N. [email or web address] 03:53 PM 12 ml air in Vasc Band. [email or web address] 03:53 PM Procedure completed at 15:53 07/15/2018 [email or web address] 03:54 PM Sign out completed: Radiation Dose 118.71 mGy, 14.0 Gy/cm2 Fluoro Time: 2.2 Isovue 370 - 200ml contrast 75 ml given by Duke Manjarrez MD. Complications: None. 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 Sedation minutes 20. Cardiac Rehab Consult needed: . Confirmed administered medications: Yes [email or web address] 03:54 PM Isovue 370 - 200ml,1 Bottle(s) used. [email or web address] 03:54 PM Estimated Blood Loss: less than 20cc [email or web address] 03:55 PM Post ECG NSR [email or web address] 03:55 PM Post Blood Pressure 159/74 [email or web address] 03:55 PM 15:55 Post Pulses Rt Radial 1+ [email or web address] 03:56 PM Information taught Cardiac Cath and Vasc Band [email or web address] 03:56 PM Education needs Procedure, Plan of Care, and Disease Process [email or web address] 03:56 PM Learning barriers :Sedated [email or web address] 03:56 PM Education Methods Verbal [email or web address] 03:56 PM Education evaluation Needs further instruction [email or web address] 03:56 PM Site status No bleeding/hematoma - Rt Wrist as reported by Sandra Metzger RT (R) at 15:56 [email or web address] 03:56 PM Delay to floor No [email or web address] 03:56 PM Complications: None [email or web address] 03:56 PM No Family [email or web address] 03:58 PM Patient out of room: 15:58 [email or web address] 03:58 PM Time: 15:43LOC: 5 = Fully awake and oriented or at pre-proc level [email or web address] 03:58 PM Time: 15:43 Patient comfortable and pain free: Yes [email or web address] 04:00 PM Report given to RN Pt taken to Room #23. 16:00 [email or web address] Complications Complication None None Hemodynamics Pressures Site Systolic/A Wave Diastolic/V Wave Mean AO 16 15 15 AO 144 84 109 AO 0 -1 0 AO 156 64 108 LV 0 -3 -3 LV 170 16 24 LV -1 -2 -1 LV 171 10 20 LV 4 3 4 LV 187 46 21 AO 176 28 107 Post Procedure Information Blood Pressure: 159/74 mmHg Rhythm: NSR Post procedural instructions were given Site Checks Time Location Status Staff Sheath In? Note 03:56 PM Rt Wrist No bleeding/hematoma Sandra Metzger RT (R) Pulses Time Site Pre-Procedure Post-Procedure Note 07/15/2018 3:26:00 PM Rt Radial 2+ 07/15/2018 3:26:00 PM Bilateral DP & PT 1+ 3:55:00 PM Rt Radial 1+ Updated by Sandra Metzger RTRosa) on 07/15/2018 4:01:15 PM electronically signed on 07/15/2018 4:01:37 PM with status of Final
--- NOTE | 2018-07-15 17:10 | Internal Med Progress Note ---
Hospitalist Progress Note - Encounter Date of Encounter: 07/15/18 Time of Encounter: 17:08 - Subjective Interval History: Pt currently has no chest pain. denies palpitation, syncope, or sob. - Exam Vitals: Temp Pulse Resp BP Pulse Ox 98.2 F 60 16 178/81 97 07/15/18 16:30 07/15/18 17:05 07/15/18 17:05 07/15/18 17:05 07/15/18 17:05 Exam: General appearance: Present: A&O X 3, no acute distress - Head Head exam: Present: normocephalic - Eye Eye exam: Present: normal appearance - ENT ENT exam: Present: mucous membranes moist - Respiratory Respiratory exam: Present: CTAB. Absent: accessory muscle use, rales, rhonchi, wheezes - Cardiovascular Cardiovascular exam: Present: RRR, +S1, +S2. Absent: diastolic murmur, gallop, rubs, systolic murmur - GI/Abdominal GI/Abdominal exam: Present: normal bowel sounds, soft, no peritoneal signs. Absent: distended, tenderness - Extremities Exam Extremities exam: Absent: pedal edema - Neurological Exam Neurological exam: Present: alert, oriented X3, no focal deficits. Absent: altered - Psychiatric Psychiatric exam: -normal mood Skin exam: -normal color - Assessment and Plan (1) Diabetes Current Visit: No Status: Chronic Assessment and Plan: continue Januvia and hold glimepiride while covering with sliding-scale insulin (2) Anxiety Current Visit: No Status: Chronic Assessment and Plan: continue home dose of Xanax (3) HLD (hyperlipidemia) Current Visit: No Status: Chronic Assessment and Plan: Continue home dose of statin (4) Ventricular trigeminy Current Visit: Yes Status: Acute Assessment and Plan: Patient reports 24-hour onset of palpitations found to have ventricular trigeminy on EKG trop negative. ECHO unremarkable. Stress tests showed small size perfusion defect. [facility] normal coronary. will dc in am. (5) DVT prophylaxis Current Visit: Yes Status: Acute Assessment and Plan: Subcutaneous heparin (6) GERD (gastroesophageal reflux disease) Current Visit: Yes Status: Chronic Assessment and Plan: Continue home dose of PPI - Time Spent with Patient Total time spent is greater than 50% in coordination of care (as documented) at patient's floor/unit and/or counseling patient: Greater than 35 minutes Plan of Care Discussed with: patient Internal Medicine: Result - Labs CBC & Chem 7: 07/14/18 00:33 07/14/18 00:33 - ABG Interpretation ABG results: PT/INR, D-dimer PT 11.9 Seconds (9.4-12.1) 07/13/18 07:49 Consult Discharge Plan - Plan Referrals: Ucsupriya,Mike Stoner MD [Primary Care Provider] - 07/23/18 1:30 pm Prescriptions: GI Cocktail [Gi Cocktail] 40 ml PO TID PRN #20 each PRN Reason: Abdominal Distention Lisinopril [Zestril] 5 mg PO DAILY #30 tablet Metoprolol [Lopressor] 25 mg PO BID #60 tablet (1) Diabetes Qualifiers: Diabetes mellitus type: type 2 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
[2018-07-15] MEDS: Aspirin Enteric Coated 81 MG Tablet PO SCH (20:11)
[2018-07-15] MEDS: ALPRAZolam 0.5 MG TABLET PO SCH (20:11)
[2018-07-16 06:30] VITALS: BP 133/82
[2018-07-16] MEDS: *HR* Heparin 5,000 UNIT/ML VIAL SQ SCH (08:40)
[2018-07-16] MEDS: *HR* SitaGLIPtin 100 MG TABLET PO SCH (08:48)
[2018-07-16] MEDS: Cyanocobalamin (B-12) 1,000 MCG TABLET PO SCH (08:48)
[2018-07-16] MEDS: ALPRAZolam 0.25 MG TABLET PO SCH (08:48)
== END 2018-07-16 11:23 | disposition home or self-care (01) ==
LOC: 3BNU 06:21 → EMEROOARM 06:21 → 3BNU 11:30
PROVIDERS: ADMIT Hospitalist; ATTEND Hospitalist